=== PATIENT | female | born 1950 | race Caucasian/White ===

== ENCOUNTER 2020-07-13 09:42 | Inpatient (IN) | payer OTHER ==
[2020-07-10 16:28] LABS: BASOPHILS 0.2 % (0-2); EOSINOPHILS 1.8 % (0-7); HEMATOCRIT 41.8 % (36.0-48.0); HEMOGLOBIN 13.7 g/dL (12-16); IMMATURE GRANULOCYTES 0.5 % (0-5); LYMPHOCYTE ABS# 3.15 10x3/uL (1.18-3.74); LYMPHOCYTES 24.6 % (15-50); MCH 28.5 pg (26.0-34.0); MCHC 32.8 g/dL (31.0-37.0); MCV 86.9 fL (80.0-100.0); MEAN PLATELET VOLUME 9.2 fL (7.4-10.4); MONOCYTES 5.5 % (2-11); NEUTROPHIL ABS# 8.66 10x3/uL (1.56-6.13); NEUTROPHILS 67.4 % (40-80); RBC 4.81 10x6/uL (4.00-5.40); RDW 15.6 % (11.5-14.5); WBC 12.8 10x3/uL (4.8-10.8)
[2020-07-10 16:36] LABS: PLATELET COUNT 309 10x3/uL (130-400)
[2020-07-10 16:42] LABS: ANION GAP 9.3 mmol/L (8-16); CALCIUM 9.4 mg/dL (8.5-10.1); CARBON DIOXIDE 29.6 mmol/L (21.0-32.0); POTASSIUM - SERUM 3.9 mmol/L (3.5-5.1)
[2020-07-10 16:56] LABS: APTT 27.6 SECONDS (22.8-39.4); INR 1.04 (0.85-1.17); PROTIME 12.6 SECONDS (11.6-15.0)
[~2020-07-13] VITALS: Ht 165.1 cm; Wt 104.1 kg
--- NOTE | ~2020-07-13 | HEMODYNAMI ---
PATIENT:DARYL ANAYA MEDICAL RECORD: [id number] : 52 LOCATION:D.MS Jin2226 ADMISSION DATE: 07/13/20 Generatedon:19:50 Patient name: DARYL ANAYA Patient #: [id number] SSN: : 1950 Date of study: 07/20/2020 Page: Of Hemodynamic Procedure Report Patient Data Patient Demographics Procedure consent was obtained First Name: DARYL Gender: Female Last Name: HÉCTOR : 1950 Middle Initial: D Age: 69 year(s) Patient #: [id number] Race: Unknown Additional ID: [id number] Contact details [address]: [address] [place] [address] [employer] State: [place] City: [place] Zip code: [address] Past Medical History Allergies Allergen Reaction Date Comments Reported Codeine 07/20/2020 Admission Admission Data Admission Date: 07/13/2020 Admission Time: 18:27 Room #: D.2226 Procedure Procedure Types Cath Procedure Peripheral Cath Diagnostic Procedure PICC PICC Line Placement Procedure Description Procedure Date Procedure Date: 07/20/2020 Procedure Start Time: 9:45 Procedure Staff Name Function Tl Emerson MD Performing Physician Jennifer Low RT Computer Field Technician Mile Kovacs RN Nurse Chandana Hernández RT Scrub Procedure Data Cath Procedure Fluoroscopy Diagnostic fluoroscopy Total fluoroscopy Time: 0 time: 0 min min Diagnostic fluoroscopy Total fluoroscopy dose: 3 dose: 3 mGy mGy Hemodynamics Rest Pre Cath Intra NCS Post Cath Procedure Log Time Note 9:03:58 Use device set PICC 9:04:00 SHIELD Sorbaview ([id number]) opened to sterile field. 9:04:01 Sterile Angiographic Pack opened to sterile field. 9:04:02 Bag Decanter () opened to sterile field. 9:04:11 PowerPICC 5Fr double lumen catheter opened to sterile field. 9:04:20 9:21:03 Time tracking: Regular hours (M-F 7:00 - 5:00) 9:21:38 Plan of Care:Hemodynamics will remain stable., Cardiac rhythm will remain stable., Comfort level will be maintained., Respiratory function will remain adequate., Patient/ family verbilizes understanding of procedure., Procedure tolerated without complication., Recovers from procedure without complications.. 9:21:48 Patient received from Med/Surg to IR Alert and oriented. Tansferred to table in Supine position. 9:21:52 Signed procedure consent form obtained from patient. 9:22:10 H&P Date Dictated: 07/20/2020 Within 30 days and on chart.. 9:44:34 Patient allergic to Codeine 9:44:46 Physician arrived 9:44:46 --------ALL STOP TIME OUT------ 9:44:47 Final Timeout: patient, procedure, and site verified with staff and physician. All members of the team are in agreement. 9:45:08 Right Arm site verified by team. 9:45:17 PICC 9:45:22 Procedure started. 9:45:24 Full Disclosure recording started 9:45:37 Local anesthetic to right arm with Lidocaine 1% by Tl Emerson MD.INITIAL ACCESS ONLY 9:45:40 Venous access obtained using ultrasound guidance. 9:49:02 PICC line was trimmed to 39cm and advanced to the superior vena cava.Position verified under fluoroscopy. 9:49:48 Procedure ended.(Physican Out) 9:49:51 Fluoroscopy time 00.00 minutes. 9:49:54 Fluoroscopy dose: 3 mGy 9:49:54 Flurop Dose total: 3 9:49:57 Procedure and supply charges have been captured, reviewed, submitted and are correct. 9:50:36 Report given to Med/Surg. Device Usage Item Name Manufacture Quantity Catalog Hospital Part Current Minimal Lot# / Number Charge Number Stock Stock Serial# Code DAGOBERTO Centurion 1 [id number] 5 Sorbaview ([id number]) Sterile Cardinal 1 [id number] 5 Angiographic Health Pack Bag Decanter Microtek 1 [id number] [id number] 5 () Medical Inc. PowerPICC Bard 1 [id number] [id number] [id number] 5 5Fr double lumen catheter Signature Audit [place] Stage Time Signature Unsigned Intra-Procedure 07/20/2020 Jennifer Low 9:50:49 AM RT(R) [facility] [address] [place] [address]
[~2020-07-13 09:42] MED LIST: GABAPENTIN100 MG PO; GLIMEPIRIDE2 MG PO; GLUCOPHAGE500 MG PO; GLUCOTROL 5 MG T5 MG PO; HYDROCHLOROTH12.5 M1 PO; HYDROCODON-ACE1 EA10 PO; LEXAPRO10 MG PO; OMEPRAZOLE40 MG PO; PLAVIX75 MG PO; PROAIR HFA8.5 G1 INH
[2020-07-13 10:33] VITALS: BMI 33.3
--- NOTE | 2020-07-13 18:00 | NUR ---
THIS NURSE HAS CALLED THREE TIMES TO PHARMACY TO ASK THAT ZOSYN WHICH IS OVERDUE TO BE BROUGHT THERE IS NONE AVAILABLE ON THIS DEPARTMENT, SPOKE WITH SKIDDER DRIVER, AND NONE HAS BEEN BROUGHT SO ZOSYN IS OVERDUE.
--- NOTE | 2020-07-13 18:15 | NUR ---
REPORT GIVEN TO BUCK BRICEÑO RN AND PATIENT TRANSPORTED BY STRETCHER TO ROOM 2226, PATIENT TRANSFERS FROM STRETCHER TO BED AND EXCHANGE OF CARE GIVEN TO RECEIVING MED/SURG NURSE BUCK BRICEÑO.
[2020-07-13 20:00] VITALS: BP 104/59
[2020-07-13 23:03] VITALS: BP 104/59; BMI 33.1
--- NOTE | 2020-07-13 23:28 | NUR ---
ADMISSION ASSESSMENT AND HISTORY COMPLETE.
[2020-07-13 23:52] VITALS: BP 88/44
--- NOTE | 2020-07-14 | NUR ---
LYING IN BED W/EYES CLOSED RESP EVEN AND UNLABORED W/02@2L/NC IN PROGRESS. NO DISTRESS NOTD.
[2020-07-14 03:53] VITALS: BP 97/60
[2020-07-14 05:58] LABS: HEMOGLOBIN 11.6 g/dL (12-16); MCH 28.3 pg (26.0-34.0); MCHC 31.4 g/dL (31.0-37.0); MCV 90.2 fL (80.0-100.0); MEAN PLATELET VOLUME 9.4 fL (7.4-10.4); PLATELET COUNT 250 10x3/uL (130-400); RDW 16.1 % (11.5-14.5); WBC 9.9 10x3/uL (4.8-10.8)
[2020-07-14 08:54] VITALS: BP 99/52
[2020-07-14 12:29] LABS: ERYTHROCYTE SEDIMENTATION RATE 31 mm/hr (0-30)
[2020-07-14 12:55] VITALS: BP 132/70
[2020-07-14 14:26] VITALS: Ht 165.1 cm; Wt 104.1 kg
[2020-07-14 17:40] VITALS: BP 139/73
--- NOTE | 2020-07-14 19:10 | NUR ---
LYING IN BED AWAKE, ALERT, ORIENTED. RESP EVEN AND UNLABORED ON RA. NO DISTRESS NOTED. DENIES ANY NEEDS AT THIS TIME.
[2020-07-14 20:49] VITALS: BP 135/71
--- NOTE | 2020-07-14 20:50 | NUR ---
MEDS ADMINISTERED/ORDER, PT TOLERATED ALL WELL. REQUEST PAIN MED--MORPHINE ADMINISTERED/ORDER SEE AUG. ASSISTED PT TO BEDPAN THEN CHANGED PT'S BED, PADS, AND GOWN. NO FURTHER NEEDS VOICED. NO DISTRESS NOTED.
[2020-07-15] VITALS (7 sets, daily range): BP systolic 99–130; BP diastolic 53–88
[2020-07-15 07:23] LABS: BASOPHILS 0.2 % (0-2); EOSINOPHILS 2.3 % (0-7); HEMATOCRIT 35.5 % (36.0-48.0); HEMOGLOBIN 11.2 g/dL (12-16); IMMATURE GRANULOCYTES 0.3 % (0-5); LYMPHOCYTE ABS# 2.24 10x3/uL (1.18-3.74); LYMPHOCYTES 23.6 % (15-50); MCH 27.9 pg (26.0-34.0); MCHC 31.5 g/dL (31.0-37.0); MCV 88.3 fL (80.0-100.0); MEAN PLATELET VOLUME 9.2 fL (7.4-10.4); MONOCYTES 5.7 % (2-11); NEUTROPHIL ABS# 6.46 10x3/uL (1.56-6.13); NEUTROPHILS 67.9 % (40-80); PLATELET COUNT 229 10x3/uL (130-400); RBC 4.02 10x6/uL (4.00-5.40); RDW 15.7 % (11.5-14.5); WBC 9.5 10x3/uL (4.8-10.8)
--- NOTE | 2020-07-15 07:37 | NUR ---
REPORT RECIEVED. PT SITTING SEMI FOWLERS IN BED. RR EVEN AND UNLABORED ON RA. SHE HAS A R AC PIV INFUSING 1/2NS @ 50. BED LOCKED AND IN LOWEST POSITION, CALL LIGHT WITHIN REACH. WILL CTM
[2020-07-15 07:47] LABS: CALC OSMOLALITY 284 mosm/kg (275-300); CALCIUM 8.7 mg/dL (8.5-10.1); CARBON DIOXIDE 32.1 mmol/L (21.0-32.0); CHLORIDE - SERUM 103 mmol/L (98-107); CREATININE - SERUM 0.8 mg/dL (0.6-1.3); GLUCOSE 194 mg/dL (74-106); POTASSIUM - SERUM 4.6 mmol/L (3.5-5.1); SODIUM 139 mmol/L (136-145); UREA NITROGEN 17 mg/dL (7-18); eGFR NON AFRICAN AMERICAN 75 mL/min (90-120)
[2020-07-15 07:48] LABS: VANCOMYCIN - TROUGH 20.1 ug/mL (10.0-20.0)
--- NOTE | 2020-07-15 15:27 | NUR ---
OT NOTE: PT REPORTED FEELING BETTER TODAY. SPOKE WITH [facility] TODAY WHO STATED THAT THEY WERE ABLE TO GET PT TO STANDING AND TAKE SIDE STEPS AT EOB WITH MOD ASSIST AND WALKER.. PT AGREEABLE TO GET UP TO EOB AND REQUIRED ONLY MIN ASSIST. D/W PT ABOUT USE OF BS COMMODE AND PT STATED THAT SHE WOULD LIKE TO TRY. ASKED MONK FOR ASSIST FOR SAFETY REASONS. FOUND BS COMMODE. PT FEARFUL THAT COMMODE WOULD MOVE, BUT ASSURED PT THAT MONK WAS HOLDING IT AND IT WOULD NOT MOVE. PT ABLE TO PERFORM TRANSFER FROM BED TO COMMODE WITH MOD ASSIST. REQUIRED ASSIST FOR TOILET HYGIENE; BACK TO BED WITH HIGH MOD ASSIST DUE TO TRANSFERRING TOWARDS NWB SIDE. EDUCATED ON UE AROM EXS..PT CONT TO REPORT PAIN IN L SHOULDER BUT BETTER THAN YESTERDAY. BACK TO BED WITH MIN ASSIST. DIAMOND TOVAR, OTR/L [phone]
--- NOTE | 2020-07-15 15:38 | NUR ---
RESTING IN BED. FREE FROM SIGNS OF DISTRESS. CALL LIGHT IN REACH. BED LOW POSITION, WILL CONTINUE TO MONITOR THROUGHOUT SHIFT.
--- NOTE | 2020-07-15 16:07 | NUR ---
OT NOTE: PT COMPLETED SUPINE TO SIT WITH MOD I. PT COMPLETED BED TO BSC TSF WITH MOD A. PT REQUIRED TOTAL A WITH TOILET HYGIENE. [phone] THANK YOU,ALESHIA KIRKLAND
--- NOTE | 2020-07-15 19:02 | NUR ---
LYING IN BED AWAKE, ALERT, ORIENTED. MOF IN ROOM VISITING. RESP EVEN AND UNLABNORED ON RA. DENIES ANY NEEDS AT THIS TIME.
--- NOTE | 2020-07-15 21:29 | NUR ---
MEDS ADMINISTERED/ORDER, PT TOLERATED ALL WELL. ASSISTED PT ONTO BEDPAN/REQUEST. NO FURTHER NEEDS VOICED AT THIS TIME. ALL CONSENTS FOR PT'S PROCEDURE REVIEWED VERBALLY W/UNDERSTANDING STATED TO ALL--SIGNED AND COMPLETED, PLACED IN PT'S CHART.
[2020-07-16] VITALS (7 sets, daily range): BP systolic 113–163; BP diastolic 58–93
--- NOTE | 2020-07-16 05:50 | NUR ---
LYING IN BED AWAKE, ALERT, ORIENTED. RESP EVEN AND UNLABORED ON RA. PT HAD CHG BATH THIS AM FOR PROCEDURE THIS AM. PT RESTED WELL LAST NIGHT W/O C/O. NO DISTRESS NOTED.
[2020-07-16 06:07] LABS: BASOPHILS 0.2 % (0-2); EOSINOPHILS 2.8 % (0-7); HEMATOCRIT 35.9 % (36.0-48.0); HEMOGLOBIN 11.4 g/dL (12-16); IMMATURE GRANULOCYTES 0.6 % (0-5); LYMPHOCYTES 30.9 % (15-50); MCHC 31.8 g/dL (31.0-37.0); MCV 88.2 fL (80.0-100.0); MEAN PLATELET VOLUME 9.4 fL (7.4-10.4); MONOCYTES 6.6 % (2-11); NEUTROPHIL ABS# 5.35 10x3/uL (1.56-6.13); NEUTROPHILS 58.9 % (40-80); PLATELET COUNT 235 10x3/uL (130-400); RBC 4.07 10x6/uL (4.00-5.40); RDW 15.6 % (11.5-14.5); WBC 9.1 10x3/uL (4.8-10.8)
[2020-07-16 06:23] LABS: ANION GAP 8.3 mmol/L (8-16); C-REACTIVE PROTEIN 2.8 mg/dL (0.0-0.9); CALCIUM 8.8 mg/dL (8.5-10.1); CARBON DIOXIDE 31.6 mmol/L (21.0-32.0); CREATININE - SERUM 0.9 mg/dL (0.6-1.3); POTASSIUM - SERUM 3.9 mmol/L (3.5-5.1)
--- NOTE | 2020-07-16 07:00 | NUR ---
RECEIVED BEDSIDE REPORT AND ASSUMED CARE OF PATIENT. PATIENT ALERT AND ORIENTED X 4, WOUND VAC TO LEFT LOWER LEG, CAP REFILL <2 SECONDS. BBS - CLEAR AND EQUAL ON RA. IV 20 GA TO RIGHT AC INFUSING 1/2NS AT 50 ML/HR. RATES PAIN TO LOWER LEG 8/10. HEAD TO TOE ASSESSMENT COMPLETED.
--- NOTE | 2020-07-16 13:18 | OP ---
PATIENT NAME: DARYL ANAYA MEDICAL RECORD: [id number] :52 LOCATION:D.MS [id number] ADMISSION DATE:07/13/20 SURGEON: TAMEKA ALEMAN MD DATE OF OPERATION: 07/13/2020 PREOPERATIVE DIAGNOSES: 1. Open wound, left ankle. 2. Left ankle infection. 3. History of left ankle fracture. POSTOPERATIVE DIAGNOSES: 1. Open wound, left ankle. 2. Left ankle infection. 3. History of left ankle fracture. PROCEDURE PERFORMED: 1. Incision and debridement of left ankle (skin, subcutaneous tissue, tendon, bone). 2. Placement of wound VAC, left ankle (less than 50 cm-squared). INDICATIONS FOR THE PROCEDURE: Ms. Anaya is a 69-year-old female who sustained a left ankle fracture in March of last year. She was treated at an outside hospital and went on to develop a wound over the anterior ankle that they have been treating with wound care. There are exposed tendons and a large eschar over the anterior aspect of the ankle as well as a couple of small draining wounds posteriorly. I have talked with her about options for limb salvage versus amputation. She would like to save her leg if possible. I explained this will be a very difficult and staged process involving multiple debridements and then wound VAC placement to facilitate healing of the tissues before hopefully eventually skin grafting these areas. We will also evaluate the fixation of the ankle. If at any point, this is not successful, she may eventually require amputation and she is aware of this. Risks, benefits and alternatives of surgery were discussed with the patient and consent was obtained. DESCRIPTION OF PROCEDURE: The patient was met in the holding area where her identity and confirmation of the procedure was performed. Left lower extremity was marked. She was taken to the operating room where she was placed supine on the operating table and anesthesia was administered. Tourniquet was applied to left thigh and left leg was prepped and draped in a sterile fashion. The patient received preoperative antibiotics and timeout was performed before initiating the case. On initiation of the case, tissue over the anterior ankle was debrided. There are exposed tendons in the lateral portion of the wound bed with the large eschar medially. This was fully transected with a fibrinous base of tissue along the skin edges beneath. This was circumferentially excised until we were back to full wound edges. The anterior tibia was present in the medial aspect of the wound bed and there was a portion of the medial malleolus fracture that was easily visible and mobile. The ankle joint was also able to be entered through the anterior medial portion of the wound. Extensive debridement of this area was performed. The tibia ant tendon was intact, but was significantly frayed. We attempted to salvage as much as we could. It appeared that the EHL tendon was absent. The extensor digitorum tendon did appear to be present. The dorsalis pedis artery was dopplerable in the wound bed. I was not able to Doppler the posterior tibial artery. After a thorough debridement of the anterior wound, the wound measured 7 x 4 cm. We then moved OPERATIVE REPORT [id number] CLINTONMichaelYOLIMARCELA Charles posterior medial. There were 2 small wounds near each other with fibrinous tissue in the wound bed and serous drainage. These were connected and elliptically excised. Medial wound measures 4 x 2 cm. These wounds were irrigated thoroughly with saline. Cultures were obtained of the anterior ankle wound including a DNA culture and culture swabs were also obtained of the posterior medial ankle wound. The wound VAC was then applied to these individual wounds and connected with an adapter. It was noted to have good compression. The patient was then placed into a posterior splint, turned back over to anesthesia where she was awakened, extubated, and taken to recovery room in stable condition. POSTOPERATIVE PLAN: The patient is going to be admitted for continued postoperative care. We will start her on prophylactic IV antibiotics and tailor these accordingly. I am going to obtain a CT scan of the ankle to better evaluate the tissues and the bone. Plan, return to the operating room on for repeat I&D. ANESTHESIA: General. COMPLICATIONS: None. ESTIMATED BLOOD LOSS: 5 mL. TRANSINT:[id number] Voice Confirmation ID: [id number] DOCUMENT ID: [id number] TAMEKA ALEMAN MD at 1318 CC: [id number] DICTATION DATE: 07/13/20 1613 GLASS TECHNICIAN: 07/13/202230 ADM IN [place] [id number]
--- NOTE | 2020-07-16 13:44 | NUR ---
IV 20 GA STARTED TO RIGHT FA X 1 ATTEMPT, POSITIVE BLOOD RETURN AND FLUSHES EASILY, INFUSING 1/2NS AT 50 ML/HR. IV 20 GA TO LEFT AC DISCONTINUED, DIRECT PRESSURE HELD AND DRESSED WITH 2X2 AND TAPE.
--- NOTE | 2020-07-16 14:43 | NUR ---
PREOP MEDS PER ORDERS AND TO OR WITH OR TECH VIA BED.
--- NOTE | 2020-07-16 15:15 | NUR ---
OT NOTE: PT PERFORMED NUMEROUS ADLS IN AM.. BED MOB WITH MIN ASSIST FOR SUPINE TO SIT; PRACTICED SIT TO STAND WITH WALKER AND MIN/MOD ASSIST AND ASSIST FOR EQUIP MGMT( WOUND VAC AND IV)...ALSO REQUIRED CUES TO ASSIST PT WITH NON WT BEARING THROUGH L LE AND INCREASE USE OF B UES WITH WALKER. TRANSFER TO BS COMMODE WITH MOD ASSIST. SET UP FOR TOILET HYGIENE; SPONGE BATH WITH MIN ASSIST. PT REPORTS THAT SHE WILL BE HAVING PROCEDURE THIS AFTERNOON. DIAMOND TOVAR, OTR/L [phone]
--- NOTE | 2020-07-16 16:45 | NUR ---
OT NOTE: PT COMPLETED BED TO BS TSF WITH MIN A. PT COMPETED LB HYGIENE WITH MOD A. PT COMPLETED STANDING WITH MIN A. [phone] THANK YOU,ALESHIA KIRKLAND
--- NOTE | 2020-07-16 17:20 | NUR ---
RECEIVED PATIENT FROM PACU, VSS. ALERT AND ORIENTED X 4, RATES PAIN TO LEFT LEG 9/10. WOUND VAC IN PLACE, DRESSING C/D/I.
--- NOTE | 2020-07-16 20:30 | NUR ---
REPORT RECEIVED, WILL CONT POC. PT A&O LAYING IN BED WATCHING TV. NO S/S OF DISTRESS NOTED. RR EVEN AND UNLABORED ON 2L NC. PT DENIES NEEDS AT THIS TIME. BED LOCKED AND LOWERED, CL IN REACH. ASSESSMENT COMPLETED AT THIS TIME. WILL CONT TO MONITOR.
[2020-07-17] VITALS: BP 118/46
[2020-07-17 04:00] VITALS: BP 112/54
[2020-07-17 05:59] LABS: BASOPHILS 0.3 % (0-2); EOSINOPHILS 2.3 % (0-7); HEMATOCRIT 34.8 % (36.0-48.0); IMMATURE GRANULOCYTES 0.6 % (0-5); LYMPHOCYTE ABS# 1.98 10x3/uL (1.18-3.74); LYMPHOCYTES 20.4 % (15-50); MCH 28.1 pg (26.0-34.0); MCHC 31.6 g/dL (31.0-37.0); MEAN PLATELET VOLUME 9.8 fL (7.4-10.4); MONOCYTES 9.9 % (2-11); NEUTROPHIL ABS# 6.44 10x3/uL (1.56-6.13); NEUTROPHILS 66.5 % (40-80); PLATELET COUNT 238 10x3/uL (130-400); RBC 3.91 10x6/uL (4.00-5.40); RDW 15.9 % (11.5-14.5); WBC 9.7 10x3/uL (4.8-10.8)
[2020-07-17 06:04] LABS: ANION GAP 7.8 mmol/L (8-16); CALCIUM 8.7 mg/dL (8.5-10.1); CREATININE - SERUM 0.9 mg/dL (0.6-1.3); POTASSIUM - SERUM 3.8 mmol/L (3.5-5.1)
[2020-07-17 08:16] VITALS: BP 114/61
--- NOTE | 2020-07-17 09:00 | NUR ---
ALERT AND ORIENTED. ADMISSION COMPLETE. DENIES NEEDS. BED LOW. CALL SANCHES AND PERSONAL ITEMS IN REACH. WILL CONTINUE TO MONITOR.
[2020-07-17 12:11] VITALS: BP 138/63
--- NOTE | 2020-07-17 12:13 | NUR ---
OT NOTE: PT COMPLETED BED MOB WITH MIN A. PT COMPLETED EOB SITTING BALANCE WITH SBA. PT COMPLETED UB HYGIENE WITH SETUP. [id number] LARA DIMAS COTA
--- NOTE | 2020-07-17 12:21 | NUR ---
OT NOTE: ATTEMPTED TO SEE PT EARLY IN THE AM, HOWEVER, SHE REQUESTED TO GET A PAIN PILL FIRST. WITH SECOND ATTEMPT, PT WAS READY TO GET UP.. PT ABLE TO PERFORM SUPINE TO SIT WITH MIN ASSIST; WITH ASSIST X 2, PT ABLE TO STAND WITH WALKER WITH MOD ASSIST X 2 (ALONG WITH EQUIP MGMT AND CONTINUAL CUES FOR WT BEARING) PT REPORTED THAT SHE COULD DO BETTER IF SHE DID NOT HAVE PAIN DOWN R LEG ALSO.. PT REQUIRED MOD ASSIST WITH WALKER MGMT TO STEP AT EOB. TOILETING WITH SET UP FOR HYGIENE. PRACTICED HAVING PT SCOOT UP IN BED AND SHE PERFORMED WELL TODAY. EDUCATED ON UE EXS IN BED. DIAMOND TOVAR, OTR/L [phone]
[2020-07-17 16:09] VITALS: BP 168/77
--- NOTE | 2020-07-17 18:04 | NUR ---
CONSENTS OBTAINED FOR PROCEDURE.
[2020-07-17 20:00] VITALS: BP 168/62
--- NOTE | 2020-07-17 23:13 | NUR ---
REPORT RECEIVED, WILL CONT TO MONITOR. PT UP IN BED WATCHING TV, A&O. NO S/S OF DISTRESS OBSERVED. RR EVEN & UNLABORED ON 2L NC. PT DENIES NEEDS AT THIS TIME. BED LOCKED AND LOWERED, CL IN REACH. ASSESSMENT COMPLETED AT THIS TIME. WILL CONT TO MONITOR.
[2020-07-18 00:39] VITALS: BP 172/68
[2020-07-18 04:00] VITALS: BP 117/51
[2020-07-18 05:54] LABS: ANION GAP 6.5 mmol/L (8-16); CALCIUM 8.6 mg/dL (8.5-10.1); CARBON DIOXIDE 29.4 mmol/L (21.0-32.0); CREATININE - SERUM 1.1 mg/dL (0.6-1.3); POTASSIUM - SERUM 3.9 mmol/L (3.5-5.1)
[2020-07-18 05:59] LABS: VANCOMYCIN - TROUGH 21.4 ug/mL (10.0-20.0)
[2020-07-18 06:06] LABS: BASOPHILS 0.5 % (0-2); EOSINOPHILS 2.9 % (0-7); HEMATOCRIT 37.5 % (36.0-48.0); IMMATURE GRANULOCYTES 0.5 % (0-5); LYMPHOCYTE ABS# 2.58 10x3/uL (1.18-3.74); LYMPHOCYTES 25.4 % (15-50); MCH 29.3 pg (26.0-34.0); MEAN PLATELET VOLUME 10.2 fL (7.4-10.4); MONOCYTES 12.8 % (2-11); NEUTROPHIL ABS# 5.89 10x3/uL (1.56-6.13); NEUTROPHILS 57.9 % (40-80); RBC 4.09 10x6/uL (4.00-5.40); RDW 16.3 % (11.5-14.5); WBC 10.2 10x3/uL (4.8-10.8)
[2020-07-18 06:07] LABS: MCV 91.7 fL (80.0-100.0); PLATELET COUNT 288 10x3/uL (130-400)
[2020-07-18 08:30] VITALS: BP 111/47
--- NOTE | 2020-07-18 08:44 | NUR ---
AWAKE AND ALERT. ORIENTED X3. REQUESTED AND GIVEN HYDROCODONE PO FOR C/O LEFT ANKLE PAIN LEVEL 8. WILL MONITOR. LUNGS ARE CLEAR BUT DIMINISHED IN RIGHT LL. PRODUCTIVE COUGH NOTED. WILL MONITOR. SKIN IS INTACT WITHOUT REDNESS EXCEPT INCISION TO LEFT ANKLE WHICH HAS A WOUND VAC IN PLACE WITH NO DRAINAGE NOTED. DENIES NEEDS. BREAKFAST TRAY ORDERED.
--- NOTE | 2020-07-18 10:00 | NUR ---
ATE MOST OF LATE BREAKFAST TRAY. TOOK AM MEDS WITHOUT DIFFICULTY. DENIES NEEDS.
--- NOTE | 2020-07-18 12:00 | NUR ---
FSBS 190. GIVEN 2 UNITS REGULAR SUB Q PER SS. LUNCH SERVED IN ROOM.
[2020-07-18 12:47] VITALS: BP 124/66
--- NOTE | 2020-07-18 15:45 | NUR ---
UP TO BSC WITH ONE PERSON MIN ASSIST NWB ON LLE. HAD LARGE VOLUMN OF LOOSE DARK BROWN WATERY STOOL. SKIN CARE PER STAFF. REPOSITIONED IN BED FOR COMFORT.
--- NOTE | 2020-07-18 16:10 | NUR ---
REQUESTED AND GIVEN 2 HYDROCODONE PO FOR C/O LEFT FOOT PAIN LEVEL 8. WILL MONITOR.
[2020-07-18 17:11] VITALS: BP 121/76
--- NOTE | 2020-07-18 18:00 | NUR ---
ATE MOST OF SUPPER. REPORTS PAIN IMPROVED. DENIES NEEDS. NO CHANGES NOTED.
--- NOTE | 2020-07-18 19:10 | NUR ---
ALERT AND ORIENTED. DAUGHTER AT BEDSIDE. PATIENT STATES "I NEED TO PEE!" ASSISTED TO BEDSIDE COMMODE. PATIENT ONE PERSON ASSIST, NWB, TO LLE. TOLERATED TRANSFERS WELL TO AND FROM BEDSIDE COMMODE. RETURNED TO BED SAFELY. WOUND VAC IN PLACE TO THE LEFT LOWER EXTREMETY AND SUCTIONING AT 150 MMHQ, PER ORDER. ASSESSMENT CONTINUED TO BE PERFORMED AND COMPLETED, SEE CHART. DENIES NEEDS AT THIS TIME. CPOC.
[2020-07-18 20:10] VITALS: BP 173/87
--- NOTE | 2020-07-18 20:24 | NUR ---
PATIENT REQUESTING PRN PAIN MEDICATION WITH HS MEDICATIONS, ADMINISTERED PER ORDER. DENIES FURTHER NEEDS AT THIS TIME. SPOKE WITH PATIENT FOR SEVERAL MINUTES ABOUT SURGICAL PROCEDURE IN AM. INCLUDING HIBBICLINS AND BED CHANGE WILL BE PROVIDED. PATIENT VERBALIZES UNDERSTANDING. DENIES FURTHER NEEDS. CPOC.
[2020-07-19] VITALS (11 sets, daily range): BP systolic 115–191; BP diastolic 33–83
[2020-07-19 05:12] LABS: BASOPHILS 0.4 % (0-2); HEMOGLOBIN 11.7 g/dL (12-16); IMMATURE GRANULOCYTES 0.4 % (0-5); LYMPHOCYTE ABS# 2.62 10x3/uL (1.18-3.74); MCH 28.3 pg (26.0-34.0); MCHC 31.6 g/dL (31.0-37.0); NEUTROPHIL ABS# 6.06 10x3/uL (1.56-6.13); NEUTROPHILS 60.2 % (40-80); RBC 4.13 10x6/uL (4.00-5.40); RDW 16.1 % (11.5-14.5); WBC 10.1 10x3/uL (4.8-10.8)
[2020-07-19 05:26] LABS: MCV 89.6 fL (80.0-100.0); PLATELET COUNT 193 10x3/uL (130-400)
[2020-07-19 05:29] LABS: ANION GAP 10.4 mmol/L (8-16); CALCIUM 8.7 mg/dL (8.5-10.1); POTASSIUM - SERUM 3.8 mmol/L (3.5-5.1)
[2020-07-19 05:30] LABS: CARBON DIOXIDE 28.4 mmol/L (21.0-32.0)
--- NOTE | 2020-07-19 07:45 | NUR ---
PRE OP MEDS GIVEN. BP IS ELEVATED THIS AM. WILL MONITOR. AWAKE AND ALERT. ORIENTED X3. LUNGS ARE CLEAR BILATERALLY, NO COUGH NOTED. SKIN IS INTACT WITHOUT REDNESS EXCEPT TO LEFT ANKLE WHICH HAS A WOUND VAC IN PLACE WITH NOT OUTPUT. IV TO LEFT FOREARM IS PATENT WITHOUT REDNESS AT INSERTION SITE. DENIES NEEDS. ASSISTED WITH BED CADE PER STAFF. VOIDED 300CC CLEAR YELLOW URINE WITHOUT DIFFICUTLY. SKIN CARE PER STAFF.
--- NOTE | 2020-07-19 09:40 | NUR ---
OFF UNIT VIA BED FOR SURGERY.
--- NOTE | 2020-07-19 13:06 | NUR ---
RETURNED FROM SURGERY. A/O X3. DRESSING TO LEFT ANKLE DRY AND INTACT. C/O PAIN TO LEFT ANKLE. ICE APPLIED TO SAME.
--- NOTE | 2020-07-19 13:30 | NUR ---
CONTINUES WITH C/O PAIN TO LEFT ANKLE. WILL CONTINUE TO MONITOR.
--- NOTE | 2020-07-19 14:00 | NUR ---
RESTING QUIETLY WITH EYES CLOSED. WHEN SHE HEARS A NOISE SHE ASKS FOR PAIN MEDICINE. WILL CONTINUE TO MONITOR.
--- NOTE | 2020-07-19 16:50 | NUR ---
FSBS 215. GIVEN 4 UNITS REGULAR SUBQ PER SS. CONTINUES TO C/O PAIN. GIVEN 2 HYDROCODONE PO FOR LEVEL 10. WILL MONITOR.
--- NOTE | 2020-07-19 18:37 | NUR ---
CALLED [employer] AND GOT ALTERNATIVE TRAY FOR SUPPER. REPORTS PAIN IMPROVED AFTER HYDROCODONE GIVEN. WILL CONTINUE TO MONITOR. DENIES NEEDS. NO CHANGES NOTED.
--- NOTE | 2020-07-19 19:25 | NUR ---
PATIENT IN SUPINE POSITION WHEN ENTERING ROOM. PATIENT ALERT, ORIENTED, AND REQUESTING PAIN MEDICATION AT THIS TIME. EXPLAINED TO PATIENT MEDICATION UNAVAILABLE. ASSISTED PATIENT WITH NEW ICE PACK AND ELEVATING LLE. WOUND VAC REMAINS ADHERED TO LLE, SUCTIONING AT 150 MMHQ PER ORDER. PATIENT STATES NONPHAM INTERVENTIONS "HELP A LOT." DENIES FURTHER NEEDS AT THIS TIME. CALL LIGHT CLOSE. CPOC.
--- NOTE | 2020-07-19 21:00 | NUR ---
PATIENT INCONTINET OF BOWEL. FULL BED CHANGE AND BATH PERFORMED ON PATIENT. TOELRATED WELL. ADMINISTERED HS MEDICATIONS. CPOC.
--- NOTE | 2020-07-19 22:45 | NUR ---
ANSWERED PATIENT CALL LIGHT. PATIENT STATES "CAN I HAVE SOMETHING TO EAT, I AM STARVING." PROVIDED SANDWICH TRAY.
--- NOTE | 2020-07-20 01:09 | NUR ---
PATIENT REQUESTING PRN PAIN MEDICATION. ADMINISTERED PER ORDER. PROVIDED NEW ICE PACKS WELL. DENIES FURTHER NEEDS. CPOC.
[2020-07-20 04:00] VITALS: BP 126/54
[2020-07-20 06:59] LABS: ANION GAP 8.2 mmol/L (8-16); POTASSIUM - SERUM 4.2 mmol/L (3.5-5.1)
[2020-07-20 07:00] LABS: CREATININE - SERUM 1.3 mg/dL (0.6-1.3)
[2020-07-20 08:36] LABS: BASOPHILS 0.3 % (0-2); EOSINOPHILS 3.2 % (0-7); HEMATOCRIT 32.4 % (36.0-48.0); IMMATURE GRANULOCYTES 0.3 % (0-5); LYMPHOCYTE ABS# 2.56 10x3/uL (1.18-3.74); LYMPHOCYTES 26.5 % (15-50); MCH 28.3 pg (26.0-34.0); MCHC 30.9 g/dL (31.0-37.0); MEAN PLATELET VOLUME 9.6 fL (7.4-10.4); MONOCYTES 8.5 % (2-11); NEUTROPHIL ABS# 5.91 10x3/uL (1.56-6.13); NEUTROPHILS 61.2 % (40-80); RBC 3.53 10x6/uL (4.00-5.40); RDW 16.5 % (11.5-14.5); WBC 9.7 10x3/uL (4.8-10.8)
[2020-07-20 08:53] LABS: MCV 91.8 fL (80.0-100.0); PLATELET COUNT 234 10x3/uL (130-400)
[2020-07-20 09:12] VITALS: BP 137/78
[2020-07-20 12:00] VITALS: BP 91/66
--- NOTE | 2020-07-20 13:55 | NUR ---
Nutrition follow-up: Pt receiving a consistent CHO diet with po intake 75-100% of meals Labs reviewed Wt: 199# +BM, loose PO intake good at this time Will continue to provide food choices with selective menus and honor food preferences Will offer nutritional supplements. RDN follow-up: 07/24/20
[2020-07-20 17:08] LABS: AEROBE ID Final report (()); RESULT 1 Dermabacter hominis (())
[2020-07-20 17:13] VITALS: BP 113/62
--- NOTE | 2020-07-20 19:52 | MORECARE ---
CASE MANAGEMENT DISCHARGE SUMMARY PATIENT: DARYL ANAYA UNIT: [id number] ADM DATE: 07/13/20 AGE: 69 : 51 SEX: F ROOM/BED: D.2226 AUTHOR: CORINE GÓMEZ PHYSICIAN: REFERRING PHYSICIAN: TAMEKA ALEMAN MD DATE OF SERVICE: 07/20/20 Discharge Plan Patient Name: DARYL ANAYA Facility: [facility]:[place] : 1950 Planned Disposition: Anticipated Discharge Date: Discharge Date: Expected LOS: Initial Reviewer: [email or web address] Initial Review Date: 07/14/2020 Generated: 07/20/20 8:51 pm Patient Name: DARYL ANAYA Page [phone] at 1950 All edits/amendments must be made on the electronic document DICTATION DATE: 07/20/201950 TENDER LABOR: TAM 07/20/201950 RPT#: [id number] DC DATE: STATUS: ADM IN [facility] [address] [place] [address] END OF REPORT
--- NOTE | 2020-07-20 20:38 | MORECARE ---
CASE MANAGEMENT DISCHARGE SUMMARY PATIENT: DARYL ANAYA UNIT: [id number] ADM DATE: 07/13/20 AGE: 69 : 51 SEX: F ROOM/BED: D.2226 AUTHOR: CORINE GÓMEZ PHYSICIAN: REFERRING PHYSICIAN: TAMEKA ALEMAN MD DATE OF SERVICE: 07/20/20 Discharge Plan Patient Name: DARYL ANAYA Facility: [facility]:[place] : 1950 Planned Disposition: Anticipated Discharge Date: Discharge Date: Expected LOS: Initial Reviewer: [email or web address] Initial Review Date: 07/14/2020 Generated: 07/20/20 9:37 pm Comments DCP- Discharge Planning Updated by [email or web address]: Eden Schwarz on 07/20/20 7:[address] SENT THE ORDER TO [facility] WAITING ON SENSIVITIES FOR HOME IV ABX ORDER TO SET UP External Providers External Provider: [facility] [employer] Next Contact Date: Service Request Date: Service Type: Resolution: Reviewer: Comments: Last DP export: 07/20/20 6:52 p Patient Name: DARYL ANAYA Page [phone] at 2037 All edits/amendments must be made on the electronic document DICTATION DATE: 07/20/202036 COMPANY PILOT: TAM 07/20/202036 RPT#: [id number] DC DATE: STATUS: ADM IN [facility] [address] [place] [address] END OF REPORT
[2020-07-20 21:32] VITALS: BP 136/70
[2020-07-21 00:23] VITALS: BP 127/60
--- NOTE | 2020-07-21 02:11 | NUR ---
REC'D IN BED WATCHING TV.DRSG LEFT ANKLE AND WOUND VAC INTACT.ELEVATED ON PILLOW TOES AND NAILBEDS PINK AND WARM.BLANCHES WELL WIGGLES WITHOUT DIFFICULTY.WILL CONTINUE TO MONITOR FOR ANY CHGES IN NEUROVASCULAR STATUS AND FOLLOW CURRENT PLAN OF CARE.
[2020-07-21 04:23] VITALS: BP 147/52
[2020-07-21 07:32] LABS: ANION GAP 13.2 mmol/L (8-16); CALCIUM 8.5 mg/dL (8.5-10.1); CARBON DIOXIDE 26.4 mmol/L (21.0-32.0); CREATININE - SERUM 1.4 mg/dL (0.6-1.3); POTASSIUM - SERUM 4.6 mmol/L (3.5-5.1)
[2020-07-21 08:11] VITALS: BP 142/54
[2020-07-21 08:11] LABS: BASOPHILS 0.5 % (0-2); HEMATOCRIT 33.2 % (36.0-48.0); HEMOGLOBIN 10.3 g/dL (12-16); IMMATURE GRANULOCYTES 0.2 % (0-5); LYMPHOCYTE ABS# 2.33 10x3/uL (1.18-3.74); MCH 28.4 pg (26.0-34.0); MCV 91.5 fL (80.0-100.0); MEAN PLATELET VOLUME 9.5 fL (7.4-10.4); NEUTROPHILS 63.3 % (40-80); PLATELET COUNT 188 10x3/uL (130-400); RBC 3.63 10x6/uL (4.00-5.40); RDW 16.3 % (11.5-14.5); WBC 9.3 10x3/uL (4.8-10.8)
[2020-07-21 11:50] VITALS: BP 162/72
--- NOTE | 2020-07-21 14:21 | MORECARE ---
CASE MANAGEMENT DISCHARGE SUMMARY PATIENT: DARYL ANAYA UNIT: [id number] ADM DATE: 07/13/20 AGE: 69 : 51 SEX: F ROOM/BED: D.[facility]6 AUTHOR: CORINE GÓMEZ PHYSICIAN: REFERRING PHYSICIAN: TAMEKA ALEMAN MD DATE OF SERVICE: 07/21/20 Discharge Plan Patient Name: DARYL ANAYA Facility: [facility]:[place] : 1950 Planned Disposition: Anticipated Discharge Date: Discharge Date: Expected LOS: Initial Reviewer: [email or web address] Initial Review Date: 07/14/2020 Generated: 07/21/20 3:20 pm Comments DCP- Discharge Planning Updated by [email or web address]: Eden Schwarz on 07/21/20 1:[address] [facility] WOUND VAC APPROVED, WAITING ON MICRO FOR IV HOME ABX DCP- Discharge Planning Updated by [email or web address]: Eden Schwarz on 07/20/20 7:[address] SENT THE ORDER TO [facility] WAITING ON SENSIVITIES FOR HOME IV ABX ORDER TO SET UP External Providers [facility] Next Contact Date: Service Request Date: Service Type: Resolution: Reviewer: Comments: Last DP export: 07/20/20 7:38 p Patient Name: DARYL ANAYA Page [phone] at 1421 All edits/amendments must be made on the electronic document DICTATION DATE: 07/21/20 142 CARDING MACHINE OPERATOR: TAM 07/21/20 142 RPT#: [id number] DC DATE: STATUS: ADM IN [facility] [address] [place] [address] END OF REPORT
--- NOTE | 2020-07-21 14:29 | MORECARE ---
CASE MANAGEMENT DISCHARGE SUMMARY PATIENT: DARYL ANAYA UNIT: [id number] ADM DATE: 07/13/20 AGE: 69 : 51 SEX: F ROOM/BED: D.2226 AUTHOR: CORINE GÓMEZ PHYSICIAN: REFERRING PHYSICIAN: TAMEKA ALEMAN MD DATE OF SERVICE: 07/21/20 Discharge Plan Patient Name: DARYL ANAYA Facility: [facility]:[place] : 1950 Planned Disposition: Anticipated Discharge Date: Discharge Date: Expected LOS: Initial Reviewer: [email or web address] Initial Review Date: 07/14/2020 Generated: 07/21/20 3:28 pm Comments DCP- Discharge Planning Updated by [email or web address]: Eden Schwarz on 07/21/20 1:[address] I HAVE FAXED CLINCIALS TO [facility], PATIENT IS CURRENT WITH THEM AT THIS TIME DCP- Discharge Planning Updated by [email or web address]: Eden Schwarz on 07/21/20 1:[address] [facility] WOUND VAC APPROVED, WAITING ON MICRO FOR IV HOME ABX DCP- Discharge Planning Updated by [id number]: Eden Schwarz on 07/20/20 7:[address] SENT THE ORDER TO [facility] WAITING ON SENSIVITIES FOR HOME IV ABX ORDER TO SET UP Last DP export: 07/21/20 1:21 p Patient Name: DARYL ANAYA Page 64092 at 1429 All edits/amendments must be made on the electronic document DICTATION DATE: 07/21/20 1428 DIRECTOR SPEECH: TAM 07/21/20 1428 RPT#: [id number] DC DATE: STATUS: ADM IN [facility] [address] [id number] END OF REPORT
[2020-07-21 16:00] VITALS: BP 169/62
[2020-07-21 20:00] VITALS: BP 136/55
--- NOTE | 2020-07-22 00:07 | NUR ---
REC'D CHGE OF SHIFT WALKING ROUNDS YELLING ON ENTERING ROOM STATES BEEN TRYING TO GET ON BEDPAN FOR 35MIN. ASSIATED ON BEDPAN VOIDED LGE. AMT.ACEWEEEERAP DRSG DRY AND INTACT TO LEFT FOOT ELEVATED ON TWO PILLOWS WIGGLES TOES WILL CONTINUE TO MONITOR FOR ANY CHGES IN NEUROVASCULAR STATUS AND FOLLOW CURRENT PLAN OF CARE.
[2020-07-22 01:07] VITALS: BP 160/53
[2020-07-22 04:00] VITALS: BP 138/84
[2020-07-22 06:23] LABS: BASOPHILS 0.3 % (0-2); EOSINOPHILS 3.1 % (0-7); HEMOGLOBIN 10.5 g/dL (12-16); IMMATURE GRANULOCYTES 0.2 % (0-5); LYMPHOCYTES 23.1 % (15-50); MCH 28.3 pg (26.0-34.0); MCHC 30.9 g/dL (31.0-37.0); MCV 91.6 fL (80.0-100.0); MEAN PLATELET VOLUME 9.8 fL (7.4-10.4); MONOCYTES 8.2 % (2-11); NEUTROPHIL ABS# 6.21 10x3/uL (1.56-6.13); NEUTROPHILS 65.1 % (40-80); RBC 3.71 10x6/uL (4.00-5.40); RDW 16.1 % (11.5-14.5); WBC 9.5 10x3/uL (4.8-10.8)
[2020-07-22 06:32] LABS: ANION GAP 8.6 mmol/L (8-16); CALCIUM 8.5 mg/dL (8.5-10.1); CARBON DIOXIDE 31.7 mmol/L (21.0-32.0); CREATININE - SERUM 1.3 mg/dL (0.6-1.3); POTASSIUM - SERUM 4.3 mmol/L (3.5-5.1)
[2020-07-22 06:38] LABS: PLATELET COUNT 262 10x3/uL (130-400)
[2020-07-22 07:54] VITALS: BP 154/54
[2020-07-22 11:40] VITALS: BP 126/72
[2020-07-22 15:51] VITALS: BP 201/77
--- NOTE | 2020-07-22 17:44 | NUR ---
PATIENT SITTING UP IN BED EATING DINNER, STATED SHE NEEDED THE BEDPAN, ENCOURAGED PT TO USE BSC, PT STATED SHE IS HURTING TOO MUCH TO GET UP. ENCOURAGED PT THAT SHE WILL NEED TO TRY AND GET UP IF SHE WANTS TO GO HOME AND WORKING HER MUSCLES WILL HELP HER REACH THE GOAL SOONER. HERON
[2020-07-22 20:00] VITALS: BP 189/71
--- NOTE | 2020-07-22 20:00 | NUR ---
PATIENT O2 SATURATION IS AT 87% PATIENT O2 AT 3L BUT SHE IS NOT WEARING IT. PATIENT STATES " I FEEL LIKE I'M CHOKING WHEN I WEAR IT" ENCOURAGED PATIENT TO WEAR IT AND SHOWED PATIENT WHERE SHE CAN ADJUST TIGHTNESS OR LOOSEN IN CASE PATIENT NEEDS TO ADJUST HERSELF. EDUCATED PATIENT ON IMPORTANCE OF WEARING O2. PATIENT VERBALIZED UNDERSTANDING. CONTINUE WITH PLAN OF CARE
--- NOTE | 2020-07-22 20:42 | NUR ---
REC'D IN BED INCONTINENT OF BM ANGRY STATES TAKES YOU NURSES TOO LONG TO GET HERE INSTRUCTED WE NEED TO THROW BED CADE AWAY DR WANTS YOU UP BSC AND MOVING DISCUSSED POST-OP COMPLICATIONS THAT COULD OCCUR BY NOT MOVING AROUND PNEUMONIA,BLOOD CLOTS ETC VOICES UNDERSTANDING BUT HE DOESN'T KNOW HOW PAINFUL IT IS WILL CONTINUE TO MONITOR FOR ANY CHGES IN NEUROVASCULAR STATUS AND FOLLOW CURRENT PLAN OF CARE
[2020-07-23] VITALS: BP 186/69
[2020-07-23 04:00] VITALS: BP 167/92
[2020-07-23 05:22] LABS: BASOPHILS 0.2 % (0-2); EOSINOPHILS 1.3 % (0-7); HEMATOCRIT 34.5 % (36.0-48.0); HEMOGLOBIN 10.7 g/dL (12-16); IMMATURE GRANULOCYTES 0.3 % (0-5); LYMPHOCYTES 15.1 % (15-50); MCH 27.7 pg (26.0-34.0); MEAN PLATELET VOLUME 9.2 fL (7.4-10.4); MONOCYTES 6.9 % (2-11); NEUTROPHIL ABS# 7.56 10x3/uL (1.56-6.13); NEUTROPHILS 76.2 % (40-80); PLATELET COUNT 267 10x3/uL (130-400); RBC 3.86 10x6/uL (4.00-5.40); RDW 15.9 % (11.5-14.5); WBC 9.9 10x3/uL (4.8-10.8)
[2020-07-23 05:37] LABS: ANION GAP 5.8 mmol/L (8-16); CARBON DIOXIDE 33.9 mmol/L (21.0-32.0); CREATININE - SERUM 1.2 mg/dL (0.6-1.3); POTASSIUM - SERUM 3.7 mmol/L (3.5-5.1)
[2020-07-23 05:39] LABS: MCV 89.4 fL (80.0-100.0)
[2020-07-23 05:51] LABS: VANCOMYCIN - TROUGH 27.9 ug/mL (10.0-20.0)
[2020-07-23 09:33] VITALS: BP 127/75
--- NOTE | 2020-07-23 10:30 | NUR ---
PATIENT UP IN CHAIR ,WITHOUT DISTRESS.DOOR OPEN
--- NOTE | 2020-07-23 10:49 | MORECARE ---
CASE MANAGEMENT DISCHARGE SUMMARY PATIENT: DARYL ANAYA UNIT: [id number] ADM DATE: 07/13/20 AGE: 69 : 51 SEX: F ROOM/BED: D.2226 AUTHOR: CORINE GÓMEZ PHYSICIAN: REFERRING PHYSICIAN: TAMEKA ALEMAN MD DATE OF SERVICE: 07/23/20 Discharge Plan Patient Name: DARYL ANAYA Facility: [facility]:[place] : 1950 Planned Disposition: Anticipated Discharge Date: Discharge Date: Expected LOS: Initial Reviewer: [email or web address] Initial Review Date: 07/14/2020 Generated: 07/23/20 11:48 am Comments DCP- Discharge Planning Updated by [email or web address]: Edna Jordan on 07/23/20 9:[address] Patient Name: DARYL ANAYA Admission Status: Elective Accout number: [id number] Admission Date: 07-13-2020 : 1950 Admission Diagnosis:UNSPECIFIED OPEN WOUND, LEFT ANKLE, INITIAL ENCOUNTER Attending: YOKO Current LOS: 10 Anticipated DC Date: Planned Disposition: Primary Insurance: [employer] Discharge Planning Comments: CM WILL FAX IV MED ORDER TO [facility] SOON WE RECEIVE IT. HOME IV ANTIBIOTICS ARE PENDING CULTURES. ANTICIPATE POTENTIALLY TOMORROW. PATIENT IS CURRENT WITH [facility]. CM CONTINUE TO FOLLOW AND ASSIST NEEDED. Chief Hydroelectric Station Operator: Edna Jordan DCP- Discharge Planning Updated by [email or web address]: Eden Schwarz on 07/21/20 1:[address] I HAVE FAXED CLINCIALS TO [facility], PATIENT IS CURRENT WITH THEM AT THIS TIME DCP- Discharge Planning Updated by [email or web address]: Eden Schwarz on 07/21/20 1:[address] [facility] WOUND VAC APPROVED, WAITING ON MICRO FOR IV HOME ABX DCP- Discharge Planning Updated by [email or web address]: Eden Schwarz on 07/20/20 7:[address] SENT THE ORDER TO [facility] WAITING ON SENSIVITIES FOR HOME IV ABX ORDER TO SET UP Last DP export: 07/21/20 1:29 p Patient Name: DARYL ANAYA Page [phone] at 1049 All edits/amendments must be made on the electronic document DICTATION DATE: 07/23/201047 COMMUNITY AMBASSADOR: TAM 07/23/20 1048 RPT#: [id number] DC DATE: STATUS: ADM IN [facility] [address] [place] [address] END OF REPORT
[2020-07-23 12:45] VITALS: BP 137/71
--- NOTE | 2020-07-23 13:34 | MORECARE ---
CASE MANAGEMENT DISCHARGE SUMMARY PATIENT: DARYL ANAYA UNIT: [id number] ADM DATE: 07/13/20 AGE: 69 : 51 SEX: F ROOM/BED: D.2226 AUTHOR: RICO,DOC PHYSICIAN: REFERRING PHYSICIAN: TAMEKA ALEMAN MD DATE OF SERVICE: 07/23/20 Discharge Plan Patient Name: DARYL ANAYA Facility: [facility]:[place] : 1950 Planned Disposition: Anticipated Discharge Date: Discharge Date: Expected LOS: Initial Reviewer: [email or web address] Initial Review Date: 07/14/2020 Generated: 07/23/20 2:33 pm Comments DCP- Discharge Planning Updated by [email or web address]: Edna Jordan on 07/23/20 12:[address] Patient Name: DARYL ANAYA Admission Status: Elective Accout number: [id number] Admission Date: 07-13-2020 : 1950 Admission Diagnosis:UNSPECIFIED OPEN WOUND, LEFT ANKLE, INITIAL ENCOUNTER Attending: YOKO Current LOS: 10 Anticipated DC Date: Planned Disposition: Primary Insurance: [employer]MCR Discharge Planning Comments: ATTEMPTED TO CONTACT PATIENT FOR FURTHER DC PLANNING. NO ANSWER IN HER ROOM. I SPOKE WITH THE NURSE AND SHE SAID SHE IS SLEEPING, SHE WAS AWAKE MOST OF THE NIGHT. I WILL TRY CALLING HER BACK LATER TODAY. Poultry Farm Manager: Edna Jordan DCP- Discharge Planning Updated by [email or web address]: Edna Jordan on 07/23/20 9:[address] Patient Name: DARYL ANAYA Admission Status: Elective Accout number: [id number] Admission Date: 07-13-2020 : 1950 Admission Diagnosis:UNSPECIFIED OPEN WOUND, LEFT ANKLE, INITIAL ENCOUNTER Attending: YOKO Current LOS: 10 Anticipated DC Date: Planned Disposition: Primary Insurance: NOVASYSMCR Discharge Planning Comments: CM WILL FAX IV MED ORDER TO [facility] SOON WE RECEIVE IT. HOME IV ANTIBIOTICS ARE PENDING CULTURES. ANTICIPATE POTENTIALLY TOMORROW. PATIENT IS CURRENT WITH [facility]. CM CONTINUE TO FOLLOW AND ASSIST NEEDED. Poultry Farm Manager: Edna Jordan DCP- Discharge Planning Updated by [email or web address]: Eden Schwarz on 07/21/20 1:[address] I HAVE FAXED CLINCIALS TO [facility], PATIENT IS CURRENT WITH THEM AT THIS TIME DCP- Discharge Planning Updated by [email or web address]: Eden Schwarz on 07/21/20 1:[address] [facility] WOUND VAC APPROVED, WAITING ON MICRO FOR IV HOME ABX DCP- Discharge Planning Updated by [email or web address]: Eden Schwarz on 07/20/20 7:[address] SENT THE ORDER TO [facility] WAITING ON SENSIVITIES FOR HOME IV ABX ORDER TO SET UP Last DP export: 07/23/20 9:49 a Patient Name: DARYL ANAYA Page 25037 at 1334 All edits/amendments must be made on the electronic document DICTATION DATE: 07/23/20 1333 SIGN PAINTER: TAM 07/23/20 1333 RPT#: [id number] DC DATE: STATUS: ADM IN [facility] [address] [place] [address] END OF REPORT
[2020-07-23 16:20] VITALS: BP 127/55
--- NOTE | 2020-07-23 19:15 | NUR ---
PATIENT RESTING WITH NO SIGNS OR SYMPTOMS OF DISTRESS. WEARNIG O2 CANNULA AT THIS TIME. LEFT LOWER EXTREMETY ELEVATED WITH WOUND VAC ADHERED, SUCTIONING AT 150 MMHQ. CPOC.
--- NOTE | 2020-07-23 20:30 | NUR ---
PATIENT AWAKE, VITALS ASSESSED. ASSISTED WITH AMBULATION TO BEDSIDE COMMODE. LARGE BOWEL MOVEMENT AND URINE AT THIS TIME. SHEETS CHANGED DUE TO SLIGHT URINARY INCONTINENCE. PATIENT COMPLAINING OF RESPIRATORY DISCOMFORT. CALL TO RT SARIAH.
--- NOTE | 2020-07-23 21:07 | NUR ---
PATIENT REQUESTING PRN PAIN MEDICATION, ADMINISTERED PER ORDER.
--- NOTE | 2020-07-23 21:15 | NUR ---
SARIAH, RT IN ROOM ASSESSING PATIENT. UPDRAFT TREATMENT ADMINISTERED.
--- NOTE | 2020-07-23 22:00 | NUR ---
PATIENT STATES SHE "FEELS MUCH BETTER" AFTER BREATHING TREATMENT.
[2020-07-23 22:02] VITALS: BP 124/65
--- NOTE | 2020-07-24 01:09 | NUR ---
PATIENT REQUESTS PRN PAIN MEDICATION, ADMINISTERED PER ORDER. CPOC.
--- NOTE | 2020-07-24 05:06 | NUR ---
PATIENT REQUESTS PRN PAIN MEDICATION, ADMINISTERED PER ORDER. DENIES FURTHER NEEDS AT THIS TIME. CPOC.
[2020-07-24 05:15] VITALS: BP 92/52
[2020-07-24 06:55] LABS: CALCIUM 8.8 mg/dL (8.5-10.1); CARBON DIOXIDE 34.9 mmol/L (21.0-32.0); CREATININE - SERUM 1.2 mg/dL (0.6-1.3); POTASSIUM - SERUM 3.9 mmol/L (3.5-5.1)
[2020-07-24 07:01] LABS: BASOPHILS 0.3 % (0-2); EOSINOPHILS 2.2 % (0-7); HEMATOCRIT 33.2 % (36.0-48.0); HEMOGLOBIN 10.4 g/dL (12-16); IMMATURE GRANULOCYTES 0.3 % (0-5); LYMPHOCYTE ABS# 2.68 10x3/uL (1.18-3.74); LYMPHOCYTES 23.5 % (15-50); MCH 28.3 pg (26.0-34.0); MCHC 31.3 g/dL (31.0-37.0); MCV 90.2 fL (80.0-100.0); MEAN PLATELET VOLUME 9.4 fL (7.4-10.4); NEUTROPHIL ABS# 7.72 10x3/uL (1.56-6.13); NEUTROPHILS 67.7 % (40-80); PLATELET COUNT 249 10x3/uL (130-400); RBC 3.68 10x6/uL (4.00-5.40); RDW 16.2 % (11.5-14.5); WBC 11.4 10x3/uL (4.8-10.8)
--- NOTE | 2020-07-24 08:35 | NUR ---
PT ALERT/ORIENTED. ASSISTED TO BSC. PT HAD BM AND VOIDED. ASSISTED BACK TO BED. DID WELL WITH SMALL TRANSFER ASSISTANCE. CL IN REACH. PT DID DESAT INTO THE 80S WHEN WE GOT UP. SOME SOB. CHECKED O2 SAT CAME UP TO 92 %. NO NEEDS AT THIS TIME. WCTM
[2020-07-24 09:51] VITALS: BP 147/66
--- NOTE | 2020-07-24 12:27 | MORECARE ---
CASE MANAGEMENT DISCHARGE SUMMARY PATIENT: DARYL ANAYA UNIT: [id number] ADM DATE: 07/13/20 AGE: 69 : 51 SEX: F ROOM/BED: D.2226 AUTHOR: RICO,DOC PHYSICIAN: REFERRING PHYSICIAN: TAMEKA ALEMAN MD DATE OF SERVICE: 07/24/20 Discharge Plan Patient Name: DARYL ANAYA Facility: [facility]:[place] : 1950 Planned Disposition: Anticipated Discharge Date: Discharge Date: Expected LOS: Initial Reviewer: [email or web address] Initial Review Date: 07/14/2020 Generated: 07/24/20 1:27 pm Comments DCP- Discharge Planning Updated by [email or web address]: Edna Jordan on 07/23/20 12:[address] Patient Name: DARYL ANAYA Admission Status: Elective Accout number: [id number] Admission Date: 07-13-2020 : 1950 Admission Diagnosis:UNSPECIFIED OPEN WOUND, LEFT ANKLE, INITIAL ENCOUNTER Attending: YOKO Current LOS: 10 Anticipated DC Date: Planned Disposition: Primary Insurance: N[employer]YSMCR Discharge Planning Comments: ATTEMPTED TO CONTACT PATIENT FOR FURTHER DC PLANNING. NO ANSWER IN HER ROOM. I SPOKE WITH THE NURSE AND SHE SAID SHE IS SLEEPING, SHE WAS AWAKE MOST OF THE NIGHT. I WILL TRY CALLING HER BACK LATER TODAY. National Facilities Manager: Edna Jordan DCP- Discharge Planning Updated by [email or web address]: Edna Jordan on 07/23/20 9:[address] Patient Name: DARYL ANAYA Admission Status: Elective Accout number: [id number] Admission Date: 07-13-2020 : 1950 Admission Diagnosis:UNSPECIFIED OPEN WOUND, LEFT ANKLE, INITIAL ENCOUNTER Attending: YOKO Current LOS: 10 Anticipated DC Date: Planned Disposition: Primary Insurance: NOVASYSMCR Discharge Planning Comments: CM WILL FAX IV MED ORDER TO [facility] SOON WE RECEIVE IT. HOME IV ANTIBIOTICS ARE PENDING CULTURES. ANTICIPATE POTENTIALLY TOMORROW. PATIENT IS CURRENT WITH [facility]. CM CONTINUE TO FOLLOW AND ASSIST NEEDED. National Facilities Manager: Edna Jordan DCP- Discharge Planning Updated by [email or web address]: Eden Schwarz on 07/21/20 1:[address] I HAVE FAXED CLINCIALS TO [facility], PATIENT IS CURRENT WITH THEM AT THIS TIME DCP- Discharge Planning Updated by [email or web address]: Eden Schwarz on 07/21/20 1:[address] [facility] WOUND VAC APPROVED, WAITING ON MICRO FOR IV HOME ABX DCP- Discharge Planning Updated by [email or web address]: Eden Schwarz on 07/20/20 7:[address] SENT THE ORDER TO [facility] WAITING ON SENSIVITIES FOR HOME IV ABX ORDER TO SET UP External Providers [facility] Next Contact Date: Service Request Date: Service Type: Resolution: Reviewer: Comments: Last DP export: 07/23/20 12:34 p Patient Name: DARYL ANAYA Page 51264 at 1227 All edits/amendments must be made on the electronic document DICTATION DATE: 07/24/207 UNDERWRITING SUPPORT MANAGER: TAM 07/24/20 1227 RPT#: [id number] DC DATE: STATUS: ADM IN [facility] [address] [place] [address] END OF REPORT
--- NOTE | 2020-07-24 13:00 | NUR ---
PT CALLED TO HAVE HER DOOR SHUT. SHE WAS WANTING TO NAP. CL IN REACH. WCTM
--- NOTE | 2020-07-24 13:26 | NUR ---
Nutrition follow-up: Pt receiving a consistent CHO diet with po intake ~50% of meals Labs reviewed: glucse under good to fair control Wt: 199# +BM PO intake fair at this time Will continue to provide food choices and honor food preferences within diet restrictions. RDN follow-up: 07/28/20
[2020-07-24 14:08] VITALS: BP 147/58
[2020-07-24 21:11] VITALS: BP 125/61
[2020-07-25 00:54] VITALS: BP 91/37
--- NOTE | 2020-07-25 04:45 | NUR ---
I have reviewed this patient and I concur with the Shift Assessment completed by the Licensed Practical Nurse today this shift.
[2020-07-25 06:05] VITALS: BP 105/51
[2020-07-25 09:35] VITALS: BP 94/59
[2020-07-25 13:25] VITALS: BP 139/58
[2020-07-25 16:08] LABS: AEROBE ID Final report (())
[2020-07-25 18:22] VITALS: BP 97/54
--- NOTE | 2020-07-25 19:30 | NUR ---
PATIENT RESTING IN BED AND DENIES NEEDS AT THIS TIME. BED IN LOWEST POSITION AND CALL LIGHT WITHIN REACH. ENCOURAGED THE PATIENT TO CALL IF THEY HAVE NEEDS.
[2020-07-25 20:00] VITALS: BP 132/56
--- NOTE | 2020-07-25 20:23 | NUR ---
ADMINISTERED MEDS PER ORDERS. PATIENT BERNARDO WELL. ENCOURAGED PATIENT TO CALL WITH NEEDS.
[2020-07-26] VITALS: BP 149/71
[2020-07-26 04:00] VITALS: BP 121/72
[2020-07-26 07:51] LABS: BASOPHILS 0.2 % (0-2); EOSINOPHILS 0.7 % (0-7); HEMATOCRIT 33.9 % (36.0-48.0); IMMATURE GRANULOCYTES 2.7 % (0-5); LYMPHOCYTE ABS# 1.35 10x3/uL (1.18-3.74); LYMPHOCYTES 15.3 % (15-50); MCH 27.5 pg (26.0-34.0); MCHC 29.5 g/dL (31.0-37.0); MCV 93.1 fL (80.0-100.0); MEAN PLATELET VOLUME 9.1 fL (7.4-10.4); MONOCYTES 7.8 % (2-11); NEUTROPHIL ABS# 6.48 10x3/uL (1.56-6.13); NEUTROPHILS 73.3 % (40-80); PLATELET COUNT 213 10x3/uL (130-400); RBC 3.64 10x6/uL (4.00-5.40); WBC 8.8 10x3/uL (4.8-10.8)
--- NOTE | 2020-07-26 08:00 | NUR ---
PT ASSESSED. CL IN REACH. NO NEEDS AT THIS TIME. WCTM
[2020-07-26 08:11] LABS: ALBUMIN 2.5 g/dL (3.4-5.0); ALKALINE PHOSPHATASE 99 U/L (30-120); ALT (SGPT) 7 U/L (10-68); BILIRUBIN - TOTAL 0.18 mg/dL (0.2-1.3); CALCIUM 8.3 mg/dL (8.5-10.1); CARBON DIOXIDE 33.2 mmol/L (21.0-32.0); CHLORIDE - SERUM 102 mmol/L (98-107); POTASSIUM - SERUM 4.3 mmol/L (3.5-5.1); PROTEIN - SERUM 5.9 g/dL (6.4-8.2); SODIUM 142 mmol/L (136-145); UREA NITROGEN 20 mg/dL (7-18); VANCOMYCIN - RANDOM 16.9 ug/mL (10.0-20.0)
[2020-07-26 08:12] LABS: CALC OSMOLALITY 292 mosm/kg (275-300); CREATININE - SERUM 0.2 mg/dL (0.6-1.3); GLUCOSE 233 mg/dL (74-106); eGFR NON AFRICAN AMERICAN > 90 mL/min (90-120)
--- NOTE | 2020-07-26 11:04 | NUR ---
WILL TALK TO DR ALEMAN ABOUT CHANGING PRN BREATHING TX TO SCHECULED. WELL SOMETHING FOR RASH/ YEAST INFECTION. WCTM
[2020-07-26 11:14] VITALS: BP 123/48
[2020-07-26 11:25] VITALS: BP 121/50
--- NOTE | 2020-07-26 11:51 | NUR ---
PT ASSISTED TO SIT IN CHAIR AT THIS TIME. CL IN REACH. MEDS GIVEN PER EMAR. WCTM
[2020-07-26 18:13] VITALS: BP 104/66
--- NOTE | 2020-07-26 19:00 | NUR ---
BEDSIDE REPORT RECEIVED AND CARE OF PT ASSUMED. PT LYING IN SUPINE POSITION WITH EYES CLOSED AND EASY RESPIRATIONS. RIGHT PICC LINE PATENT WITH 1/2 NS INFUSING AT 50 ML/HR. WOUND VAC IN PLACE ON LEFT ANKLE WELL COMPRESSED WITH NO LEAKAGE ALARMS. O2 IN USE VIA HIGH FLOW NC AT 8L. WILL MONITOR FOR NEEDS.
[2020-07-26 20:00] VITALS: BP 110/47
--- NOTE | 2020-07-26 21:09 | NUR ---
HS MEDICATIONS GIVEN. PT DECLINED COLACE. WILL CONTINUE TO MONITOR FOR NEEDS.
--- NOTE | 2020-07-26 21:10 | NUR ---
FSBS 241 THIS CHECK REQUIRING COVERAGE WITH 4 UNITS OF INSULIN PER SLIDING SCALE.
--- NOTE | 2020-07-26 23:06 | NUR ---
PT C/O SOB AND VERY ANXIOUS. SPO2 94% ON 8L HIGH FLOW. PAGED RT TO JUSTIN. CALLED [facility]SAY [facility] WHO GAVE ORDER FOR ALBUTERAL UPDRAFT Q2HR PRN SOB. SHE WILL DISCUSS WITH DR ALEMAN IN AM ABOUT POSSIBLE PULMONOLOGY CONSULT.
[2020-07-27] VITALS: BP 170/49
[2020-07-27 04:00] VITALS: BP 160/104
[2020-07-27 05:33] LABS: BASOPHILS 0.2 % (0-2); EOSINOPHILS 0.8 % (0-7); HEMATOCRIT 33.4 % (36.0-48.0); HEMOGLOBIN 9.9 g/dL (12-16); IMMATURE GRANULOCYTES 1.5 % (0-5); LYMPHOCYTE ABS# 2.01 10x3/uL (1.18-3.74); LYMPHOCYTES 19.4 % (15-50); MCH 27.6 pg (26.0-34.0); MCHC 29.6 g/dL (31.0-37.0); MEAN PLATELET VOLUME 9.1 fL (7.4-10.4); MONOCYTES 9.4 % (2-11); NEUTROPHIL ABS# 7.11 10x3/uL (1.56-6.13); NEUTROPHILS 68.7 % (40-80); PLATELET COUNT 223 10x3/uL (130-400); RBC 3.59 10x6/uL (4.00-5.40); WBC 10.4 10x3/uL (4.8-10.8)
[2020-07-27 06:00] LABS: ALBUMIN 2.6 g/dL (3.4-5.0); ANION GAP 10.6 mmol/L (8-16); BILIRUBIN - TOTAL 0.23 mg/dL (0.2-1.3); CALCIUM 8.6 mg/dL (8.5-10.1); CARBON DIOXIDE 31.5 mmol/L (21.0-32.0); POTASSIUM - SERUM 4.1 mmol/L (3.5-5.1); PROTEIN - SERUM 6.8 g/dL (6.4-8.2)
[2020-07-27 06:03] LABS: CREATININE - SERUM 1.6 mg/dL (0.6-1.3)
--- NOTE | 2020-07-27 08:00 | NUR ---
ASSESSMENT PER FLOW SHEET. RESP THERAPY CALLED TO ROOM. PATIENTS SATS 86% ON 8 LITERS PER NASAL CANULA, 02 INCREASED TO 10 LITERS PER NASAL CANULA, SATS 94-96%. MONITOR FOR NEEDS.
[2020-07-27 08:25] VITALS: BP 143/89
[2020-07-27 09:27] LABS: C-REACTIVE PROTEIN 2.9 mg/dL (0.0-0.9); CKMB 0.3 U/L (0.0-3.6); CREATINE KINASE 21 UL (21-215); FERRITIN 61 ng/mL (3-244)
[2020-07-27 09:39] LABS: TROPONIN-I < 0.017 ng/mL (0.000-0.060)
[2020-07-27 10:31] LABS: SARS-CoV-2 ANTIGEN NEGATIVE- SARS-COV-2 (NEGATIVE)
[2020-07-27 12:29] VITALS: BP 108/50
[2020-07-27 13:08] LABS: ERYTHROCYTE SEDIMENTATION RATE 63 mm/hr (0-30)
--- NOTE | 2020-07-27 13:35 | NUR ---
RESP THERAPY CALLED FOR TX PER PATIENT REQUEST.FSBS PER MAR
--- NOTE | 2020-07-27 16:45 | NUR ---
PATIENT STILL IN XRAY FOR LUNG SCAN. I WENT TO UNIT TO FLUSH PICC, BUT CONTRAST STILL IN LINE AFTER FLUSHING MULTIPLE TIMES. RRT TO CALL ANOTHER STAFF MEMBER FOR INSTRUCTION. PATIENT STAYS IN XRAY.
--- NOTE | 2020-07-27 17:56 | NUR ---
BACK FROM XRAY. PATIENT WITHOUT DISTRESS.MEDS PER MAR
--- NOTE | 2020-07-27 19:00 | NUR ---
BEDSIDE REPORT RECEIVED AND CARE OF PT ASSUMED. PT LYING IN LOW CULVER'S POSITION VISITING WITH DAUGHTER. IV TO LEFT AC PATENT WITH 1/2 NS INFUSING AT 50 ML/HR. WOUND VAC IN PLACE ON LEFT ANKLE, WELL COMPRESSED WITH NO LEAKAGE ALARMS. WILL MONITOR FOR NEEDS.
[2020-07-27 19:59] VITALS: BP 135/78
--- NOTE | 2020-07-27 22:20 | NUR ---
CALLED RT PER PT REQUEST FOR CADE UPDRAFT TREATMENT FOR SOB.
[2020-07-28 00:41] VITALS: BP 136/74
--- NOTE | 2020-07-28 01:59 | NUR ---
CALLED RT PER PT REQUEST FOR BREATHING TX FOR SOB. ASKED RT IF SHE CAN BE PLACED ON HER BIPAP.
--- NOTE | 2020-07-28 02:07 | NUR ---
PT PLACED ON BIPAP BY RT. ALSO PROVIDED PT WITH A FAN FOR CONTINUOUSLY C/O THAT ROOM IS HOT...DESPITE THERMOSTAT BEING ON 55 DEGREES. WILL CONTINUE TO MONITOR FOR NEEDS.
[2020-07-28 04:39] VITALS: BP 141/82
--- NOTE | 2020-07-28 04:40 | NUR ---
GAVE ZOFRAN 4 MG IVP FOR C/O NAUSEA. WILL MONITOR FOR EFFECTIVENESS.
[2020-07-28 06:17] LABS: ALBUMIN 2.6 g/dL (3.4-5.0); ANION GAP 9.3 mmol/L (8-16); BILIRUBIN - TOTAL 0.3 mg/dL (0.2-1.3); CALCIUM 9.2 mg/dL (8.5-10.1); CARBON DIOXIDE 30.7 mmol/L (21.0-32.0); CREATININE - SERUM 1.3 mg/dL (0.6-1.3)
[2020-07-28 06:47] LABS: HEMATOCRIT 35.4 % (36.0-48.0); HEMOGLOBIN 11.1 g/dL (12-16); LYMPHOCYTE ABS# 1.92 10x3/uL (1.18-3.74); MCH 28.5 pg (26.0-34.0); MCHC 31.4 g/dL (31.0-37.0); MEAN PLATELET VOLUME 9.9 fL (7.4-10.4); NEUTROPHIL ABS# 7.56 10x3/uL (1.56-6.13); RBC 3.89 10x6/uL (4.00-5.40); RDW 16.3 % (11.5-14.5); WBC 10.5 10x3/uL (4.8-10.8)
[2020-07-28 06:50] LABS: PLATELET COUNT 300 10x3/uL (130-400)
[2020-07-28 08:48] VITALS: BP 184/87
--- NOTE | 2020-07-28 09:00 | NUR ---
ASSESSMENT PER FLOW SHEET. PATIENT VERY TEARFUL TODAY. SHE IS WITHOUT DISTRESS AT PRESENT. FALL PREVENTION BED ALAM. DOOR OPEN
--- NOTE | 2020-07-28 10:29 | NUR ---
1030--- PLACE BACK ON BIPAP PER ORDERS SPO2--90%
[2020-07-28 13:14] VITALS: BP 134/59
[2020-07-28 14:23] LABS: ANISOCYTOSIS OCC; LYMPHOCYTES 18 % (15-50); MONOCYTES 12 % (2-11); NEUTROPHILS 70 % (40-80); PLATELET ESTIMATE NORMAL; ROULEAUX OCC
--- NOTE | 2020-07-28 14:54 | NUR ---
Nutrition reasessment/follow-up: Pt continues with inadequate oral intake R/T breathing issues on BIPAP and/or HF NC AEB continued po intake < 50% of meals. Ht: 5'5" Wt: 199# Estimated nutritional needs: 8175-8237 kcal - 25-35 kcal/kg AdjBW of 65 kg 65-85 g protein - 1.0-1.3 gm/kg AdjBW 8904-8523 ml fluid - or per MD Current diet order: Consistent CHO PO intake ~50% of some meals; PO intake 07/27/20 was nothing recorded Pt reports feeling better today. Goals: - PO intake =/> 75% of meals, snacks - Meet at least 75% of estimated fluid need - Stable dry wt +/-5# Interventions: Will continue to provide food choices and honor food preferences Will continue to offer and encourage Glucerna Shake Pt may benefit from an appetite stimulant; and/or ProcalAmine PPN @ 75 ml/hr short-term. RDN follow-up: 07/31/20
[2020-07-28 16:07] LABS: CKMB 0.5 U/L (0.0-3.6); CREATINE KINASE 20 UL (21-215)
[2020-07-28 16:09] LABS: TROPONIN-I < 0.017 ng/mL (0.000-0.060)
--- NOTE | 2020-07-28 16:10 | NUR ---
OT NOTE: PT REQUIRED MAX A FOR POSITIONING. PT IS ON BYPAP AT THIS TIME. 105-120 THANK YOU,ALESHIA KIRKLAND
[2020-07-28 18:05] VITALS: BP 128/76
--- NOTE | 2020-07-28 19:57 | NUR ---
CALL TO SON MATTHIEU TO INFORM HIM OF PATIENT BEING MOVED TO ROOM 0.
[2020-07-28 21:50] VITALS: BP 162/62
--- NOTE | 2020-07-28 22:09 | NUR ---
PT AWAKE, ALERT, TRANSFERRED FROM [facility]. WOUND VAC TO LEFT FOOT
[2020-07-29] VITALS (15 sets, daily range): BP systolic 93–186; BP diastolic 49–108
--- NOTE | 2020-07-29 00:19 | NUR ---
24 G PIV TO LEFT ARM NOT ABLE TO FLUSH NOTED TO BE KINKED UNABLE TO REPOSITON IV DC'D ATTEMPTED TO REINSERT PIV MULTIPLE TIMES WITHOUT SUCCESS
--- NOTE | 2020-07-29 02:28 | NUR ---
pt trasferred from [place] with right PICC line order in chart for IR to eval PICC for not working. Chandana from IR came to pt bedside, assessed PICC and reported both lines with blood return and able to flush. Reported he would discuss with MD and call unit to clarify if ok to use PICC. Chandana with IR called, ok to use right PICC line. Right PICC line assessed red port flushing well excellent blood return. IV fluids and Zosyn restarte via right PICC line
--- NOTE | 2020-07-29 07:00 | NUR ---
NURSE IN ROOM THIS AM WITH PATIENT, PATIENT IS SLEEPY BUT IS ABLE TO ANSWER ALL OF ORIENTATION QUESTIONS. PLAN OF CARE REVIEWED AND ASSESSMENT HAS BEEN COMPLETED. JUNE DENIES QUESTIONS. CALL LIGHT IN REACH
[2020-07-29 07:06] LABS: ALBUMIN 2.5 g/dL (3.4-5.0); ANION GAP 2.7 mmol/L (8-16); BILIRUBIN - TOTAL 0.22 mg/dL (0.2-1.3); CALCIUM 9.3 mg/dL (8.5-10.1); CARBON DIOXIDE 39.2 mmol/L (21.0-32.0); CREATININE - SERUM 1.4 mg/dL (0.6-1.3); POTASSIUM - SERUM 3.9 mmol/L (3.5-5.1); PROTEIN - SERUM 6.8 g/dL (6.4-8.2)
--- NOTE | 2020-07-29 08:00 | NUR ---
PATIENT IS SITTING UP TO SIDE OF BED FEEDING SELF BREAKFAST. PATIENT DENIES NEEDS. CALL LIGHT IN REACH
[2020-07-29 08:12] LABS: BASOPHILS 0.4 % (0-2); EOSINOPHILS 1.2 % (0-7); HEMATOCRIT 34.7 % (36.0-48.0); HEMOGLOBIN 10.2 g/dL (12-16); IMMATURE GRANULOCYTES 0.6 % (0-5); LYMPHOCYTE ABS# 1.66 10x3/uL (1.18-3.74); LYMPHOCYTES 17.5 % (15-50); MCH 27.6 pg (26.0-34.0); MCHC 29.4 g/dL (31.0-37.0); MEAN PLATELET VOLUME 9.9 fL (7.4-10.4); MONOCYTES 6.9 % (2-11); NEUTROPHIL ABS# 6.94 10x3/uL (1.56-6.13); NEUTROPHILS 73.4 % (40-80); PLATELET COUNT 243 10x3/uL (130-400); RDW 16.3 % (11.5-14.5); WBC 9.5 10x3/uL (4.8-10.8)
[2020-07-29 08:14] LABS: MCV 93.8 fL (80.0-100.0)
--- NOTE | 2020-07-29 09:00 | NUR ---
NURSE GIVES PATIENT HER AM MEDS. SHE REFUSES STOOL SOFTENER THIS AM. PT DENIES NEEDS. CALL LIGHT IN REACH
--- NOTE | 2020-07-29 11:00 | NUR ---
NURSE CHECKS PT'S SUGAR THIS AM. PATIENT REQUIRES 2 UNITS
--- NOTE | 2020-07-29 11:51 | NUR ---
Rehab Prescreening [id number] recieved and thechart has been reviewed. He is managed Medicare and will require a Authorization for the Rehab. He is still on 10 liters of 02 and max assist for bed mobility. Once he is weaned down on his 02 information will be submitted for their review. Cassie Fields RN Clinical Liaison, Rehab
--- NOTE | 2020-07-29 12:00 | NUR ---
RESPIRATORY COMES TO ASK NURSE IF PATIENT HAS BEEN VERY LETHARGIC ALL DAY. NURSE LETS THEM KNOW THAT SHE HAS NOT. NURSE GOES INTO ROOM AND IS ABLE TO GET PATIENT TO WAKE WITH VERBAL STIMULI, BUT PATIENT IS NOT ABLE TO STAY AWAKE LONG. RESP IN ROOM TO DO AN ABG. NURSE REPORTS RESULTS TO DAREK. HE SAYS TO RECHECK IN AN HOUR
--- NOTE | 2020-07-29 13:10 | MORECARE ---
CASE MANAGEMENT DISCHARGE SUMMARY PATIENT: DARYL ANAYA UNIT: [id number] ADM DATE: 07/13/20 AGE: 69 : 51 SEX: F ROOM/BED: D.5040 AUTHOR: RICODOC PHYSICIAN: REFERRING PHYSICIAN: TAMEKA ALEMAN MD DATE OF SERVICE: 07/29/20 Discharge Plan Patient Name: DARYL ANAYA Facility: [facility]:[place] : 1950 Planned Disposition: Anticipated Discharge Date: Discharge Date: Expected LOS: Initial Reviewer: [email or web address] Initial Review Date: 07/14/2020 Generated: 07/29/20 2:09 pm Comments DCP- Discharge Planning Updated by [email or web address]: Edna Jordan on 07/29/20 12:[address] Patient Name: DARYL ANAYA Admission Status: Elective Accout number: [id number] Admission Date: 07-13-2020 : 1950 Admission Diagnosis:UNSPECIFIED OPEN WOUND, LEFT ANKLE, INITIAL ENCOUNTER Attending: YOKO Current LOS: 16 Anticipated DC Date: Planned Disposition: Primary Insurance: NOVASYSMCR Discharge Planning Comments: IV MED ORDER FAXED TO [facility]. I HAVE LET THEM KNOW PATIENT IS NOT READY FOR DISCHARGE YET. I WILL PLACE IV ORDER SHEET ON PATIENT CHART. Card Feeder: Edna Jordan DCP- Discharge Planning Updated by [email or web address]: Edna Jordan on 07/23/20 12:[address] Patient Name: DARYL ANAYA Admission Status: Elective Accout number: [id number] Admission Date: 07-13-2020 : 1950 Admission Diagnosis:UNSPECIFIED OPEN WOUND, LEFT ANKLE, INITIAL ENCOUNTER Attending: YOKO Current LOS: 10 Anticipated DC Date: Planned Disposition: Primary Insurance: NOVASYSMCR Discharge Planning Comments: ATTEMPTED TO CONTACT PATIENT FOR FURTHER DC PLANNING. NO ANSWER IN HER ROOM. I SPOKE WITH THE NURSE AND SHE SAID SHE IS SLEEPING, SHE WAS AWAKE MOST OF THE NIGHT. I WILL TRY CALLING HER BACK LATER TODAY. Card Feeder: Edna Jordan DCP- Discharge Planning Updated by [id number]: Edna Jordan on 07/23/20 9:[address] Patient Name: DARYL ANAYA Admission Status: Elective Accout number: [id number] Admission Date: 07-13-2020 : 1950 Admission Diagnosis:UNSPECIFIED OPEN WOUND, LEFT ANKLE, INITIAL ENCOUNTER Attending: YOKO Current LOS: 10 Anticipated DC Date: Planned Disposition: Primary Insurance: [facility] Discharge Planning Comments: CM WILL FAX IV MED ORDER TO [facility] SOON WE RECEIVE IT. HOME IV ANTIBIOTICS ARE PENDING CULTURES. ANTICIPATE POTENTIALLY TOMORROW. PATIENT IS CURRENT WITH [facility]. CM CONTINUE TO FOLLOW AND ASSIST NEEDED. Card Feeder: Edna Jordan DCP- Discharge Planning Updated by [email or web address]: Eden Schwarz on 07/21/20 1:[address] I HAVE FAXED CLINCIALS TO [facility], PATIENT IS CURRENT WITH THEM AT THIS TIME DCP- Discharge Planning Updated by [email or web address]: Eden Schwarz on 07/21/20 1:[address] [facility] WOUND VAC APPROVED, WAITING ON MICRO FOR IV HOME ABX DCP- Discharge Planning Updated by [email or web address]: Eden Schwarz on 07/20/20 7:[address] SENT THE ORDER TO [facility] WAITING ON SENSIVITIES FOR HOME IV ABX ORDER TO SET UP Last DP export: 07/24/20 11:27 a Patient Name: DARYL ANAYA Page 65068 at 1310 All edits/amendments must be made on the electronic document DICTATION DATE: 07/29/20 1309 FORENSIC PATHOLOGIST: TAM 07/29/20 1309 RPT#: [id number] DC DATE: STATUS: ADM IN [facility] [address] [place] [address] END OF REPORT
--- NOTE | 2020-07-29 13:45 | NUR ---
NURSE RESULTS ABG TO DAREK BOATENG ORDERS NURSE TO SEND PT TO ICU
--- NOTE | 2020-07-29 14:15 | NUR ---
NURSE TRANSFERS PATIENT TO ICU VIA BED, RESPIRTORY WITH NURSE DURING TRANSPORT. PATIENT IS ALERT BUT LETHARGIC DURING TRANSFER PROCESS. NURSE IS ABLE TO TALK WITH PATIENT ABOUT WHERE SHE IS GOING AND WHY. PT SEEMS TO UNDERSTAND AND IS TEARFUL. TOWER HELPER TAKES PATIENT'S BELONGINGS TO PATIENT'S ROOM. PATIENT HAS HER PHONE WITH HER.
--- NOTE | 2020-07-29 15:55 | NUR ---
OT NOTE: DCD TO ICU DIAMOND TOVAR, OTR/L
[2020-07-30] VITALS (23 sets, daily range): BP systolic 96–145; BP diastolic 52–100
--- NOTE | 2020-07-30 04:17 | NUR ---
SPOKE TO LAUREL ABDULLAHI ABOUT PATIENT TEMP 100.6. PHARMACEUTICAL SERVICE REPRESENTATIVE ORDERED TYLENOL PRN 650MG Q6HR PRN.
[2020-07-30 04:43] LABS: BASOPHILS 0.2 % (0-2); EOSINOPHILS 0.5 % (0-7); HEMATOCRIT 32.5 % (36.0-48.0); HEMOGLOBIN 9.8 g/dL (12-16); IMMATURE GRANULOCYTES 0.5 % (0-5); LYMPHOCYTES 20.9 % (15-50); MCH 27.5 pg (26.0-34.0); MCHC 30.2 g/dL (31.0-37.0); MEAN PLATELET VOLUME 9.7 fL (7.4-10.4); MONOCYTES 9.6 % (2-11); NEUTROPHILS 68.3 % (40-80); PLATELET COUNT 255 10x3/uL (130-400); RBC 3.56 10x6/uL (4.00-5.40)
[2020-07-30 04:50] LABS: ALBUMIN 2.3 g/dL (3.4-5.0); ANION GAP 9.7 mmol/L (8-16); BILIRUBIN - TOTAL 0.5 mg/dL (0.2-1.3); CALCIUM 8.6 mg/dL (8.5-10.1); CARBON DIOXIDE 34.8 mmol/L (21.0-32.0); CREATININE - SERUM 1.6 mg/dL (0.6-1.3); POTASSIUM - SERUM 3.5 mmol/L (3.5-5.1); PROTEIN - SERUM 6.1 g/dL (6.4-8.2)
[2020-07-30 04:53] LABS: MCV 91.3 fL (80.0-100.0)
--- NOTE | 2020-07-30 06:21 | NUR ---
PATIENT WITH NO ACUTE EVENTS OVER NIGHT. PATIENT WAS ANXIOUS IN THE BEGINNING OF THE SHIFT AND RECEIVED 2 DOSES OF VERSED. PATIENT WITH TMAX OF 100.6. RECEIVED TYLENOL AND CAME DOWN TO 100.2. PATIENT RECEIVED A CHG BATH AND NAM CARE. PATIENT HAD MARGINAL URINE OUTPUT FOR THE SHIFT.
--- NOTE | 2020-07-30 09:50 | NUR ---
CPAP TRIAL STARTED NOW 17/01 60%. RSBI IS 40. PT IS DOING WELL AT THIS TIME.
--- NOTE | 2020-07-30 11:34 | NUR ---
ENDED P/S TRIAL AT 1130 DUE TO PATIENT BECOMING ANXIOUS/RESPIRATORY RATE WAS 35. PATIENT IS BACK ON AC VC 20/500/60%
[2020-07-31] VITALS (23 sets, daily range): BP systolic 89–141; BP diastolic 59–121
--- NOTE | 2020-07-31 06:24 | NUR ---
NO ACUTE EVENTS OVER NIGHT. PATIENT RECEIVED A CHG BATH AND NAM CARE. PATIENT TURED Q2H ALONG WITH MOUTH CARE.
--- NOTE | 2020-07-31 07:00 | NUR ---
REPORT RECEIVED. ASSESSMENT COMPLETE PER FLOW SHEET. VSS.
--- NOTE | 2020-07-31 07:56 | OP ---
PATIENT NAME: DARYL LOVETT MEDICAL RECORD: [id number] :52 LOCATION:[facility] D.2313 ADMISSION DATE:07/13/20 SURGEON: TAMEKA ALEMAN MD DATE OF OPERATION: 07/16/2020 PREOPERATIVE DIAGNOSES: 1. Open wounds left ankle, status post I&D with wound VAC placement. 2. Left ankle infection. 3. History of ORIF left ankle fracture. POSTOPERATIVE DIAGNOSES: 1. Open wounds left ankle, status post I&D with wound VAC placement. 2. Left ankle infection. 3. History of ORIF left ankle fracture. PROCEDURE PERFORMED: 1. I&D left ankle (skin, subcutaneous tissue, bone). 2. Complex closure medial left ankle wound (4.5 cm). 3. Application of wound VAC, left ankle (less than 50 cm-squared). INDICATIONS FOR THE PROCEDURE: Ms. Lovett is a 69-year-old female who fell and fractured her ankle approximately 3 months ago, developed a wound over the anterior and medial aspect of the ankle. The wound has failed to heal and she presents today for repeat I&D of the wound with wound VAC change and closure of the medial wound. Risks, benefits and alternatives of surgery were discussed with the patient. Consent was obtained. DESCRIPTION OF THE PROCEDURE: The patient was met in the holding area where her identity and confirmation of procedure was performed. Left lower extremity was marked. She was taken to the operating room where she was placed supine on the operating table, and anesthesia was administered. A tourniquet was applied to the left thigh and left leg was prepped and draped in the usual sterile fashion. The patient is on scheduled antibiotics; therefore, did not receive any immediately preop. A timeout was performed before initiating the case. On initiation of the case, the wounds were evaluated. The tissue over the anterior wound was mostly clean. There was some yellow fibrinous tissue around the edges and the tendon at the anterior bed, it was nonviable and was able to be debrided. The tendons that were more laterally were salvageable. Again, the medial aspect of the wound opened into the ankle joint with an unstable piece of the medial malleolus at this level as well. The medial wound appeared to have good granulation tissue with just some small amount of tissue necrosis along the inferior border. The medial wound was irrigated thoroughly with saline. I was then able to be closed with 3-0 nylon suture measuring 4.5 cm. Anterior wound was thoroughly debrided including the ankle joint. A curette was used over the anterior aspect of the tibia to try to stimulate some bleeding tissue. A wound VAC was then placed, the wound measuring 7 x 4 cm. Wound VAC was placed and noted to have good compression. The ankle was then covered with a sterile dressing and the leg was placed into a posterior splint. The patient was turned back over to anesthesia where she was awakened and taken to recovery room in stable condition. POSTOPERATIVE PLAN: The patient is going to return to the floor for continued postoperative care. Continue to monitor her culture results, which are now showing multiple Gram-positive organisms and tailor her antibiotics accordingly. Plan to return to the operating room in 3-4 days. OPERATIVE REPORT [id number] DARYL LOVETT ANESTHESIA: General LMA. COMPLICATIONS: None. ESTIMATED BLOOD LOSS: 10 mL. TRANSINT:[id number] Voice Confirmation ID: [id number] DOCUMENT ID: [id number] TAMEKA ALEMAN MD at 0756 CC: [id number] DICTATION DATE: 07/16/20 165 CATTLE SHIPPER: 07/16/20 1827 ADM IN [place] [id number] [place] [address]
--- NOTE | 2020-07-31 08:04 | OP ---
PATIENT NAME: DARYL LOVETT MEDICAL RECORD: [id number] :52 LOCATION:[facility] D.2313 ADMISSION DATE:07/13/20 SURGEON: TAMEKA ALEMAN MD DATE OF OPERATION: 07/19/2020 PREOPERATIVE DIAGNOSES: 1. Open wound, left ankle, status post incision and drainage with wound VAC placement. 2. Left ankle infection. 3. History of open reduction and internal fixation of left ankle fracture with incomplete union of the medial malleolus. POSTOPERATIVE DIAGNOSES: 1. Open wound, left ankle, status post incision and drainage with wound VAC placement. 2. Left ankle infection. 3. History of open reduction and internal fixation of left ankle fracture with incomplete union of the medial malleolus. PROCEDURE PERFORMED: 1. Irrigation and debridement of left ankle (skin, subcutaneous tissue, bone). 2. ORIF of left medial malleolus. 3. Application of Kerecis tissue graft. 4. Application of wound VAC, left ankle (less than 50 cm-squared). INDICATIONS FOR THE PROCEDURE: Ms. Lovett is a 69-year-old female with history of left ankle fracture and open wound over the anterior ankle. She returned to the operating room today for repeat I&D with fixation of the medial malleolus and placement of tissue graft. Risks, benefits and alternatives of surgery were discussed with the patient and consent was obtained. DESCRIPTION OF PROCEDURE: The patient was met in the holding area, where her identity and confirmation of procedure was performed. Left lower extremity was marked. She was taken to the operating room where she was placed supine on the operating table and anesthesia was administered. A tourniquet was applied to left thigh and left leg was prepped and draped in a sterile fashion. The patient was on scheduled antibiotics. Therefore did not receive any immediately preop. A timeout was performed prior to initiating the case. On the initiation of the case, the wounds were evaluated. There was good granulation tissue around the edges. Still not a lot of bleeding from the tissues over the anterior tibia bone and the tendons laterally. Did not appear to be any significant necrotic tissue. The medial malleolus fracture is unstable and rotates with her foot position. On imaging, the medial malleolar screw has backed out slightly. It was not providing adequate fixation. It was therefore decided to place a second screw to help stabilize this fixation. Under fluoroscopy, a K-wire was placed at the medial malleolus. Reduction was held and the K-wire was advanced into the distal portion of the tibia. It was measured to 55 and a 55 Bee compression screw was then placed and securely tightened. The other screw that was present was also tightened to secure the fixation which showed improved stability of the medial malleolus. We then continued with our debridement, irrigating the wound thoroughly with saline. We attempted to repair the anterior capsule of the bone through bone tunnels to the anterior cortex of the distal tibia, but the bone was not stable enough to support the repair and this was therefore abandoned. Thorough debridement of the wound was performed. The skin edges were trimmed slightly to provide a good OPERATIVE REPORT [id number] DARYL LOVETT healing wound edge. The wound measured 7 x 4 cm. Two layers of Kerecis xenograft were then applied to the wound. The top layer was sutured into place. A wound VAC was then placed over this. We laid Adaptic down over the graft and then a wound VAC over this area. We had good compression. This was confirmed in the operating room. The patient was placed into a splint, turned back over to anesthesia, where she was awakened, extubated, and taken to recovery room in stable condition. POSTOPERATIVE PLAN: The patient will return to the floor for continued postoperative care. We will continue her IV antibiotics as well as these culture results. Plan to check the wound VAC again on Monday to assess for the viability of the graft, but hopefully this will begin to provide a tissue covering for that ankle and facilitate healing. COMPLICATIONS: None. ESTIMATED BLOOD LOSS: 25 mL. ANESTHESIA: General LMA. TRANSINT:[id number] Voice Confirmation ID: [id number] DOCUMENT ID: [id number] TAMEKA ALEMAN MD at 0804 CC: [id number] DICTATION DATE: 07/19/20 1315 SPORTS DOCTOR: 07/19/20 213 ADM IN [place] [id number] [place] [id number]
--- NOTE | 2020-07-31 12:05 | NUR ---
PT EXTUBATED PER ORDER. NEEDS MET. VSS
--- NOTE | 2020-07-31 12:43 | NUR ---
Nutrition follow-up: PT discussed durint IDT team rounds Pt intubated with possible extubation today; no nutrition support starting today per Labs reviedwed Wt: 242# RDN follow-up: 08/03/20
--- NOTE | 2020-07-31 14:15 | NUR ---
DR ALEMAN AT BEDSIDE. L LEG WOUND VAC APPLIED. NEW ORDERS REICEVED.
--- NOTE | 2020-07-31 15:44 | NUR ---
Rehab Note- Continue to follow at this time. Patient is now in ICU on vent. Will continue to follow. Thank you for this referral! Criss Stevens RN Clinical Liaison, [facility] Rehab
--- NOTE | 2020-07-31 21:12 | NUR ---
PATIENT ON NONREBREATHER BECAME SOMNOLENT. NOTIFIED DR OSWALD. ORDERED BIPAP 18/8 AT 40% AND TO DC IV FLUIDS.
[2020-08-01] VITALS (22 sets, daily range): BP systolic 80–149; BP diastolic 48–118
--- NOTE | 2020-08-01 00:31 | NUR ---
PATIENT PLACED ON BIPAP AT 2119 AT 50% FI02. PATIENT REQUIRED INCREASED AMOUNTS OF O2 FINALLY AT 100% FI02 AT 2229. PATIENT SATS WERE AROUND 97% AND HAVE SUSTAINED. 0000-PATIENT MORE ALERT AND RESPONSIVE. NODDING APPROPRIATELY. HAD 1 LIQUID BOWEL MOVEMENT.
--- NOTE | 2020-08-01 00:37 | NUR ---
PATIENT NOT IN RESTRAINTS WHEN I TOOK REPORT.
[2020-08-01 05:14] LABS: ALBUMIN 2.2 g/dL (3.4-5.0); BILIRUBIN - TOTAL 0.34 mg/dL (0.2-1.3); CALCIUM 8.8 mg/dL (8.5-10.1); CARBON DIOXIDE 31.6 mmol/L (21.0-32.0); CREATININE - SERUM 1.8 mg/dL (0.6-1.3); PROTEIN - SERUM 6.5 g/dL (6.4-8.2)
[2020-08-01 05:15] LABS: ANION GAP 9.2 mmol/L (8-16); POTASSIUM - SERUM 3.8 mmol/L (3.5-5.1)
--- NOTE | 2020-08-01 06:24 | NUR ---
PATIENT MORE RESPONSIVE THIS AM. STILL ON BIPAP 20/01 WITH 80%. NO OTHER MAJOR CHANGES.
--- NOTE | 2020-08-01 08:30 | NUR ---
BI PAP REMOVED. PATIENT COUGHING UP THICK ELIZABETH PALE YELLOW SPUTUM. THINKS THAT HER CHILDREN ARE OUTSIDE OF ROOM.REORIENTATED TO PLACE AND TIME. PLACED ON 10 LITERS NC. ENCOURAGE TO TAKE DEEP BREATHS AND COUGH. INSTRUCTIONS ON USING YANKEUR, RETURN DEMOSTRATION DONE. HEAD OF BED ELEVATED 30 DEGREES. RIGHT UPPER ARM PICC LINE INFUSING WITH ZOSYN NS KVO. ICE WATER PROVIDED COUGHED ON FIRST DRINK.. THEN WAS ABLE TO DRINK PER STRAW WITHOUT COUGHING.
--- NOTE | 2020-08-01 12:00 | NUR ---
PATIENT VERY EMOTIONAL NENITA OVER EVERY LITTLE THING. KEEPS ASKING IF WERE GOING TO KILL HER, ASK IS SHE IS DYING. PHONE CHARGES, STATES"PLEASE LET ME TALK TO MY SON" INFORMED HER CELL PHONE IS IN HER HAND FULLY CHARGE, SHE CAN CALL ALL SHE WANTS TOO, PATIENT WANTING TO GO HOME..EXPLAINED SHEIS NOT STABLE ENOUGHT FOR HOME CARE AT THIS TIME. WILL USE INCENTIVE UNTIL HER PULSE OX IS IN 80'S%, GET UPSET BECAUSE SHE IS TOLD TO JUST BREATH. PULSE WILL COME UP TO 90'S. STILL USING
--- NOTE | 2020-08-01 17:02 | NUR ---
PATIENT HAS HAD X5 SMALL GREEN STOOLS, PERICARE DONE EACH TIME. PATIENT STILL EMOTIONAL. CRYING THEN VERY FRIENDLY. STATES SHE IS TOO HOT FOR BLANKET, THEN WANTS HER BLANKET. PATIENT STILL CONFUSED
[2020-08-02] VITALS (21 sets, daily range): BP systolic 88–171; BP diastolic 69–116
[2020-08-02 07:11] LABS: BASOPHILS 0.2 % (0-2); EOSINOPHILS 0.2 % (0-7); HEMATOCRIT 32.7 % (36.0-48.0); HEMOGLOBIN 10.3 g/dL (12-16); IMMATURE GRANULOCYTES 1.1 % (0-5); LYMPHOCYTES 11.5 % (15-50); MCH 27.7 pg (26.0-34.0); MCHC 31.5 g/dL (31.0-37.0); MCV 87.9 fL (80.0-100.0); MEAN PLATELET VOLUME 9.7 fL (7.4-10.4); MONOCYTES 7.9 % (2-11); NEUTROPHIL ABS# 9.59 10x3/uL (1.56-6.13); NEUTROPHILS 79.1 % (40-80); PLATELET COUNT 241 10x3/uL (130-400); RBC 3.72 10x6/uL (4.00-5.40); RDW 16.6 % (11.5-14.5); WBC 12.1 10x3/uL (4.8-10.8)
[2020-08-02 07:42] LABS: ALBUMIN 2.4 g/dL (3.4-5.0); ANION GAP 13.4 mmol/L (8-16); BILIRUBIN - TOTAL 0.37 mg/dL (0.2-1.3); CREATININE - SERUM 1.4 mg/dL (0.6-1.3); POTASSIUM - SERUM 3.4 mmol/L (3.5-5.1); PROTEIN - SERUM 7.2 g/dL (6.4-8.2)
--- NOTE | 2020-08-02 17:11 | NUR ---
less confusion today, less emotional today. still turning self from side to side. poor appetite. west cath patent good urine output. iv right upper arm picc. dressing dry and intact. monitor sr. po fluids taken. no problem with swallowing noted.
--- NOTE | 2020-08-02 17:53 | NUR ---
TALKED WITH ABOUT ELEVATING BLOOD PRESSURE ORDERS RECEIVED. PATIENT TAKING HCTZ AT HOME WILL RESTART IT AND APRESOLINE PRN FOR SBP GREATER THAN 160
[2020-08-03] VITALS (23 sets, daily range): BP systolic 93–162; BP diastolic 66–127
[2020-08-03 04:40] LABS: BASOPHILS 0.2 % (0-2); EOSINOPHILS 1.3 % (0-7); HEMATOCRIT 31.3 % (36.0-48.0); HEMOGLOBIN 9.9 g/dL (12-16); IMMATURE GRANULOCYTES 0.6 % (0-5); LYMPHOCYTE ABS# 1.51 10x3/uL (1.18-3.74); LYMPHOCYTES 14.1 % (15-50); MCH 27.6 pg (26.0-34.0); MCHC 31.6 g/dL (31.0-37.0); MCV 87.2 fL (80.0-100.0); MEAN PLATELET VOLUME 9.6 fL (7.4-10.4); NEUTROPHIL ABS# 8.02 10x3/uL (1.56-6.13); NEUTROPHILS 74.8 % (40-80); PLATELET COUNT 259 10x3/uL (130-400); RBC 3.59 10x6/uL (4.00-5.40); RDW 16.4 % (11.5-14.5); WBC 10.7 10x3/uL (4.8-10.8)
[2020-08-03 05:15] LABS: ALBUMIN 2.2 g/dL (3.4-5.0); ANION GAP 8.5 mmol/L (8-16); BILIRUBIN - TOTAL 0.41 mg/dL (0.2-1.3); CALCIUM 8.8 mg/dL (8.5-10.1); CARBON DIOXIDE 33.7 mmol/L (21.0-32.0); CREATININE - SERUM 1.3 mg/dL (0.6-1.3); POTASSIUM - SERUM 3.2 mmol/L (3.5-5.1); PROTEIN - SERUM 6.5 g/dL (6.4-8.2)
--- NOTE | 2020-08-03 06:51 | NUR ---
NO ACUTE EVENTS OVER NIGHT. PATIENT RESTED WELL. REMAINED ON BIPAP 18/8 AT 50% FROM [id number]. RECEIVED CHG BATH AND NAM CARE. PATIENT HAVING BLADDER SPASMS, COMPLAINS OF SLIGHT BLADDER PAIN.
--- NOTE | 2020-08-03 08:49 | EC ---
PATIENT:DARYL ANAYA DATE OF SERVICE: 07/13/20 SEX: F MEDICAL RECORD: [id number] DATE OF : 51 LOCATION:[place] [address] AGE OF PATIENT: 69 ADMISSION DATE: 07/13/20 REFERRING PHYSICIAN: INTERPRETING PHYSICIAN: MARTÍN ENGEL MD ECHOCARDIOGRAM REPORT ECHO CHARGES 4 ECHO COMPLETE Date: 07/28/20 CLINICAL DIAGNOSIS: LVH ECHOCARDIOGRAPHIC MEASUREMENTS (adult normal given) AC root (d.<3.7cm) 3.0 cm LV Septum d (<1.2 cm> 1.2 cm Valve Excursion 1.7 cm LV Septum (systole) 1.4 cm Left Atria (s.<4.0cm> 4.5 cm LVPW d(<1.2cm) 1.0 cm RV (d.<2.3cm) 4.0 cm LVPW (sytole) 1.5 cm LV diastole(<5.6CM) 5.2 cm MV E-F(>70mm/sec) cm LV systole 3.1 cm LVOT Diameter 2.0 cm MV exc.(>10mm) cm Est.ejection fraction (50-75%) % DOPPLER: LVIT cm/sec A 125 cm/sec E 110 cm/sec LA cm/sec RVSP 52 mmHg LVOT 121 cm/sec AOP1/2T m/s Asc. Ao 207 cm/sec RVOT 93 cm/sec RA cm/sec PA 107 cm/sec AV Gradient Peak 17 mmHg AV Mean 7 mmHg AV Area 2.0 cm MV Gradient Peak mmHg MV Mean mmHg MV Area cm COMMENTS: Hand Thermal Cutter: Nelson LOPEZ Brass Cutter: 3 Dr. Beauchamp TAPE# Pericardial Effusion N DATE OF SERVICE: Adequate 2D echo, color flow imaging, spectral Doppler and M-Mode FINDINGS: No LVH. LV internal dimension is normal. Wall motion is normal. EF is greater than or equal to 55%. Aortic valve is tricuspid. No evidence of stenosis by Doppler interrogation. Left atrium is dilated at 4.5 cm. Mitral valve shows no prolapse. Trace MR. Right side is grossly normal. Trace TR. TRANSINT:[id number] Voice Confirmation ID: [id number] DOCUMENT ID: [id number] ECHOCARDIOGRAM REPORT [id number] DARYL ANAYA MARTÍN ENGEL MD at 0849 CC: [id number] DICTATION DATE: 07/29/20 0843 FE[employer] [place]ILL LAB TECHNICIAN: 07/29/20 1105 ADM IN [place] [id number] [facility] [place] [address]
--- NOTE | 2020-08-03 09:15 | NUR ---
DR. ALONZO HERE FOR ROUNDS. ORDER RECEIVED.
--- NOTE | 2020-08-03 11:09 | NUR ---
PT STOOD AT SIDE OF BED W/ PT. REPORTS DIZZINESS AND SOB.
--- NOTE | 2020-08-03 12:52 | NUR ---
Nutrition follow-up: Discussed during IDT team rounds RDN visited with pt during breakfast; pt only ate ~25% of meal and reports appetite poor at this time due to breathing issues Wt: 239# Labs reviewed RDN order Glucerna Shake with meals Follow-up: 08/05/20
--- NOTE | 2020-08-03 14:08 | NUR ---
PRN HYDRALAZINE GIVEN FOR HIGH BP.
[2020-08-04] VITALS (23 sets, daily range): BP systolic 102–153; BP diastolic 73–99
[2020-08-04 04:34] LABS: BASOPHILS 0.2 % (0-2); EOSINOPHILS 1.4 % (0-7); HEMOGLOBIN 9.6 g/dL (12-16); IMMATURE GRANULOCYTES 0.6 % (0-5); LYMPHOCYTE ABS# 1.64 10x3/uL (1.18-3.74); LYMPHOCYTES 16.3 % (15-50); MCH 27.9 pg (26.0-34.0); MCV 87.2 fL (80.0-100.0); MEAN PLATELET VOLUME 9.4 fL (7.4-10.4); MONOCYTES 9.5 % (2-11); NEUTROPHIL ABS# 7.27 10x3/uL (1.56-6.13); PLATELET COUNT 264 10x3/uL (130-400); RBC 3.44 10x6/uL (4.00-5.40); RDW 16.8 % (11.5-14.5); WBC 10.1 10x3/uL (4.8-10.8)
[2020-08-04 04:55] LABS: ALBUMIN 2.1 g/dL (3.4-5.0); BILIRUBIN - TOTAL 0.42 mg/dL (0.2-1.3); CALCIUM 8.4 mg/dL (8.5-10.1); CARBON DIOXIDE 35.2 mmol/L (21.0-32.0); CREATININE - SERUM 1.3 mg/dL (0.6-1.3); MAGNESIUM - SERUM 1.8 mg/dL (1.8-2.4); PHOSPHOROUS 2.4 mg/dL (2.5-4.9); PROTEIN - SERUM 6.1 g/dL (6.4-8.2)
[2020-08-04 04:57] LABS: ANION GAP 7.8 mmol/L (8-16)
--- NOTE | 2020-08-04 07:00 | NUR ---
HAS 1 SOFT BROWN STOOL.
--- NOTE | 2020-08-04 07:44 | NUR ---
BILATERAL DECUBITUS CHEST XRAYS WERE ORDERED. TECHNOLOGISTS ATTEMPTED TO DO THE EXAM BUT PATIENT COULD NOT TOLERATE LAYING ON EITHER SIDE DUE TO LEFT SIDE PAIN AND OPEN WOUND ON LEFT ANKLE. RN WAS INFORMED AND ATTEMPTED TO HELP WITH EXAM BUT PATIENT WAS STILL UNABLE TO TOLERATE POSITIONING FOR DECUBITUS CHEST XRAYS BILATERALLY.
--- NOTE | 2020-08-04 09:16 | NUR ---
PICC DRSG CHANGED PER PROTOCOL USING STERILE TECHNIQUE. TOLERATED WELL. NAM REMOVED. TOLERATED WELL.
--- NOTE | 2020-08-04 09:38 | NUR ---
DR. ALONZO HERE FOR ROUNDS. ORDERS RECEIVED.
--- NOTE | 2020-08-04 14:11 | NUR ---
WORKED W/ PT. SAT AT SIDE OF BED FOR SEVERAL MINUTES. UNABLE TO STAND S/T WEAKNESS. BACK TO BED W/ MOD ASSIST PER PT.
--- NOTE | 2020-08-04 15:37 | NUR ---
OT NOTE: PT ON HOLD PER NURSING DUE TO INCREASED SOB DIAMOND TOVAR, OTR/L
--- NOTE | 2020-08-04 22:45 | NUR ---
CHG BATH GIVEN AND COMPLETE LINEN CHANGE PROVIDED. PT BRUSHED TEETH AND LIP MOISTURIZER APPLIED. PT ON BIPAP 18/8 50% FOR TURNING, TOLERATED WELL. PT CONTINUES TO REST COMFORTABLY IN BED. NO COMPLAINTS AT THIS TIME.
[2020-08-05] VITALS (24 sets, daily range): BP systolic 93–137; BP diastolic 61–96
[2020-08-05 03:52] LABS: BASOPHILS 0.2 % (0-2); HEMOGLOBIN 9.6 g/dL (12-16); IMMATURE GRANULOCYTES 0.7 % (0-5); LYMPHOCYTE ABS# 2.06 10x3/uL (1.18-3.74); LYMPHOCYTES 22.3 % (15-50); MCV 87.3 fL (80.0-100.0); MEAN PLATELET VOLUME 9.7 fL (7.4-10.4); MONOCYTES 8.8 % (2-11); NEUTROPHIL ABS# 5.99 10x3/uL (1.56-6.13); PLATELET COUNT 274 10x3/uL (130-400); RBC 3.55 10x6/uL (4.00-5.40); RDW 16.8 % (11.5-14.5); WBC 9.2 10x3/uL (4.8-10.8)
[2020-08-05 04:27] LABS: ALBUMIN 2.2 g/dL (3.4-5.0); BILIRUBIN - TOTAL 0.34 mg/dL (0.2-1.3); CARBON DIOXIDE 34.4 mmol/L (21.0-32.0); CREATININE - SERUM 1.4 mg/dL (0.6-1.3); MAGNESIUM - SERUM 1.9 mg/dL (1.8-2.4); POTASSIUM - SERUM 3.4 mmol/L (3.5-5.1); PROTEIN - SERUM 6.4 g/dL (6.4-8.2)
--- NOTE | 2020-08-05 05:30 | NUR ---
CENTRAL LINE DRESSING COMPLETED WITH STERILE TECHNIQUIE.
--- NOTE | 2020-08-05 13:12 | NUR ---
Nutrition reassessment: Diet order: consistent CHO PO intake remains poor; ~10% of meals ProcalAmine PPN started @ 75 ml/hr Labs reviewed Wt: 240# Reassment remains the same from 07/28/20 RDN will follow-up: 07/28/20
--- NOTE | 2020-08-05 14:58 | NUR ---
REHAB PRESCREENING Rehab referral received and chart reviewed. PT and OT held today due to shortness of breath and continued use of BIPAP. Patient has [facility] and insurance provider which requires a prior authorization for acute inpatient rehab. We will begin auth but will continue to follow for improved clinical notes to submit to [facility]. Thank you for this referral! Shannan Baltazar, AUTO BODY SERVICE MECHANIC Rehab PD
--- NOTE | 2020-08-05 16:40 | NUR ---
OT NOTE: PT DOING BETTER TODAY. CURRENTLY USING NASAL CANULA. BED MOB WITH MIN/MOD ASSIST FOR SUPINE TO SIT; MOD ASSIST WITH TRANSFER TO COMMODE; MAX ASSIST WITH TOILET HYGIENE; ATTEMPTED TO BRUSH HAIR BUT IT WAS TOO TANGLED. ABLE TO WASH FACE AND HANDS WITH CLOTH AND SET UP; TRANSFER BACK TO BED WITH MOD/MAX ASSIST; MIN ASSIST FOR SIT TO SUPINE. DIAMOND TOVAR, OTR/L 1140-12
--- NOTE | 2020-08-05 17:31 | NUR ---
CONSENT SIGNED BY PATIENT AND PATIENT UPDATED ON POC AND PROCEDURE PLANNED FOR ILIA.
[2020-08-06] VITALS (24 sets, daily range): BP systolic 102–146; BP diastolic 69–99
[2020-08-06 04:36] LABS: BASOPHILS 0.3 % (0-2); HEMATOCRIT 30.7 % (36.0-48.0); HEMOGLOBIN 9.5 g/dL (12-16); IMMATURE GRANULOCYTES 0.5 % (0-5); LYMPHOCYTE ABS# 2.13 10x3/uL (1.18-3.74); LYMPHOCYTES 23.1 % (15-50); MCH 26.9 pg (26.0-34.0); MCHC 30.9 g/dL (31.0-37.0); MEAN PLATELET VOLUME 9.2 fL (7.4-10.4); MONOCYTES 7.9 % (2-11); NEUTROPHIL ABS# 5.92 10x3/uL (1.56-6.13); NEUTROPHILS 64.2 % (40-80); PLATELET COUNT 268 10x3/uL (130-400); RBC 3.53 10x6/uL (4.00-5.40); RDW 16.7 % (11.5-14.5); WBC 9.2 10x3/uL (4.8-10.8)
[2020-08-06 05:06] LABS: ALBUMIN 2.2 g/dL (3.4-5.0); ANION GAP 4.2 mmol/L (8-16); BILIRUBIN - TOTAL 0.29 mg/dL (0.2-1.3); CARBON DIOXIDE 34.4 mmol/L (21.0-32.0); CREATININE - SERUM 1.4 mg/dL (0.6-1.3); MAGNESIUM - SERUM 2.1 mg/dL (1.8-2.4); POTASSIUM - SERUM 3.6 mmol/L (3.5-5.1); PROTEIN - SERUM 6.3 g/dL (6.4-8.2)
--- NOTE | 2020-08-06 07:00 | NUR ---
REC'D REPORT AND RESUMED CARE% FIO2, AAO, BIPAP IN USE AT 50%, SAT 92%,20/01, RIGHT UPPER ARM PIC WITH PROCAL AND NS INFUSING, PLACED ON BEDPAN, 250 CC URINE TO CADE, ASSESSMENT COMPLETED PER FLOWSHEET, LISA AREA ESCORIATED, SKIN CARE GIVEN AND BUTT PASTE APPLIED, REDNESS AND SCABS TO BUTTOCK, LEFT LEG WITH BOOT TO LOWER EXTREMETY, REPOSITIONED UP AND TO BACK, CALL LIGHT IN REACH
--- NOTE | 2020-08-06 07:15 | NUR ---
CHG BATH GIVEN
--- NOTE | 2020-08-06 15:50 | NUR ---
16FR NAM CATH PLACED PER MD ORDER
--- NOTE | 2020-08-06 16:30 | NUR ---
OT NOTE: PT PERFORMED WELL WITH BED MOB INCLUDING ROLLING SIDE TO SIDE TO PLACE BED CADE. PT ONLY REQUIRING MIN ASSIST; MIN ASSIST FOR SUPINE TO SIT; MAX ASSIST WITH TOILET HYGIENE.. PT DID NOT WANT TO GET TO BS COMMODE TODAY. SIMPLE GROOMING INCLUDING FACE AND HAND WASHING WITH WASHCLOTH WITH SET UP.. DIAMOND TOVAR, OTR/L [id number]
--- NOTE | 2020-08-06 19:00 | NUR ---
Report received, care assumed. PT is laying in bed watching TV at this time. No needs voiced at this time. No s/s of distress noted. Will continue to monitor.
[2020-08-07] VITALS (14 sets, daily range): BP systolic 108–178; BP diastolic 66–130
[2020-08-07 04:40] LABS: BASOPHILS 0.2 % (0-2); EOSINOPHILS 4.5 % (0-7); HEMATOCRIT 32.4 % (36.0-48.0); HEMOGLOBIN 10.4 g/dL (12-16); IMMATURE GRANULOCYTES 0.7 % (0-5); LYMPHOCYTE ABS# 2.35 10x3/uL (1.18-3.74); LYMPHOCYTES 24.6 % (15-50); MCH 27.4 pg (26.0-34.0); MCHC 32.1 g/dL (31.0-37.0); MCV 85.3 fL (80.0-100.0); MEAN PLATELET VOLUME 9.3 fL (7.4-10.4); MONOCYTES 8.8 % (2-11); NEUTROPHIL ABS# 5.86 10x3/uL (1.56-6.13); NEUTROPHILS 61.2 % (40-80); PLATELET COUNT 298 10x3/uL (130-400); RDW 16.5 % (11.5-14.5); WBC 9.6 10x3/uL (4.8-10.8)
[2020-08-07 05:02] LABS: ALBUMIN 2.3 g/dL (3.4-5.0); ANION GAP 8.4 mmol/L (8-16); BILIRUBIN - TOTAL 0.42 mg/dL (0.2-1.3); CALCIUM 9.1 mg/dL (8.5-10.1); CARBON DIOXIDE 30.9 mmol/L (21.0-32.0); CREATININE - SERUM 1.4 mg/dL (0.6-1.3); MAGNESIUM - SERUM 1.9 mg/dL (1.8-2.4); POTASSIUM - SERUM 3.3 mmol/L (3.5-5.1); PROTEIN - SERUM 6.6 g/dL (6.4-8.2)
--- NOTE | 2020-08-07 11:10 | NUR ---
Nutrition Follow-up: NPO for I&D, wound vac change, graft placement. Receiving Procal @ 75 mL/hr; provides 441 kcal & 54 g protein daily. Ate 100% of dinner last night. Discussed in IDT. May d/c Procal after it runs out if PO intake remains good following surgery. ST following. Wt: 239.2# (08/07); 239.2# (08/03); 242.5# (07/31); 240# (07/30) Labs noted: Na 139, K+ 3.3, Glu 157, Ca 9.1, Mg 1.9, Alb 2.3 Meds noted: Lasix, HCTZ, KDur, Nystatin, Florajen, Humulin, Protonix, Miralax, Colace, electrolyte protocol -Resume diet when medically feasible; rec d/c Procal if PO intake remains good following surgery. - follow-up: 08/10
--- NOTE | 2020-08-07 11:51 | NUR ---
OT NOTE: PT INITIALLLY REPORTING THAT SHE WAS VERY HOT AND NOT FEELING WELL. REMOVED BLANKETS. PT AGREEABLE TO SIT UP ON EOB AND WANTED TO GET UP IN CHAIR; SUPINE TO SIT WITH MOD ASSIST; ABLE TO SIT UP ON SIDE OF BED FOR APPROX 10 MIN ..BATHED PTS BACK AND SHE WAS ABLE TO WASH FACE AND HANDS WITH CLOTH. PT REQUIRED MOD ASSIST X 2 FOR TRANSFER FROM BED TO CHAIR AND EQUIP MGMT. PT VERY HAPPY TO BE SITTING UP. [id number]
[2020-08-08] VITALS (10 sets, daily range): BP systolic 96–148; BP diastolic 63–86
[2020-08-08 04:16] LABS: BASOPHILS 0.2 % (0-2); EOSINOPHILS 4.5 % (0-7); HEMATOCRIT 34.2 % (36.0-48.0); HEMOGLOBIN 10.8 g/dL (12-16); IMMATURE GRANULOCYTES 0.5 % (0-5); LYMPHOCYTE ABS# 2.04 10x3/uL (1.18-3.74); LYMPHOCYTES 21.9 % (15-50); MCH 26.9 pg (26.0-34.0); MCHC 31.6 g/dL (31.0-37.0); MCV 85.3 fL (80.0-100.0); MEAN PLATELET VOLUME 9.6 fL (7.4-10.4); MONOCYTES 7.5 % (2-11); NEUTROPHIL ABS# 6.09 10x3/uL (1.56-6.13); NEUTROPHILS 65.4 % (40-80); PLATELET COUNT 334 10x3/uL (130-400); RBC 4.01 10x6/uL (4.00-5.40); RDW 16.4 % (11.5-14.5); WBC 9.3 10x3/uL (4.8-10.8)
[2020-08-08 04:28] LABS: ANION GAP 10.9 mmol/L (8-16); CALCIUM 9.1 mg/dL (8.5-10.1); CARBON DIOXIDE 30.5 mmol/L (21.0-32.0); CREATININE - SERUM 1.4 mg/dL (0.6-1.3); MAGNESIUM - SERUM 1.9 mg/dL (1.8-2.4); PHOSPHOROUS 3.6 mg/dL (2.5-4.9); POTASSIUM - SERUM 3.4 mmol/L (3.5-5.1)
--- NOTE | 2020-08-08 06:47 | NUR ---
BP MACHINE MALFUNCTIONED AND BP WERE NOT AVAILABLE PART OF THE SHIFT.
--- NOTE | 2020-08-08 11:47 | NUR ---
PT WHEELCHAIR FOUND BY RN IN STORAGE ROOM OF ICU. RETURNED TO PT AND LABELED WITH PT NAME
--- NOTE | 2020-08-08 12:15 | NUR ---
REPORT CALLED TO MED FLOOR RN. VSS NO SCUTE DISTRESS NOTED. PT IN WHEELCHAIR WITH BELONGINGS. [facility] TO TRANSPORT PT
--- NOTE | 2020-08-08 13:31 | NUR ---
VS STABLE. PT ALERT AND ORIENTED. REQUESTS AND WILL RECEIVE A BSC AND MORE PILLOWS.
--- NOTE | 2020-08-08 16:13 | NUR ---
PT ASSISTED BACK TO BED. NO FURTHER NEEDS AT THIS TIME. WCTM
--- NOTE | 2020-08-08 19:05 | NUR ---
RECEIVED REPORT, ASSUMED CARE, BREATHING EVEN UNLABORED, CALL LIGHT IN REACH, BED LOWEST POSITION, DENIES NEEDS, NO S/S OF DISTRESS NOTED, ENCOURAGED PT TO NOTIFY STAFF OF ANY NEEDS, HELPED TO BEDSIDE COMMODE AND BACK TO BED, REPOSITINED, NAM TO GRAVITY, WOUND VAC ON WITH NO LEAKS
--- NOTE | 2020-08-09 03:00 | NUR ---
I have reviewed this patient and I concur with the Shift Assessment completed by the Licensed Practical Nurse today this shift.
[2020-08-09 07:17] LABS: ALBUMIN 2.6 g/dL (3.4-5.0); ANION GAP 9.7 mmol/L (8-16); BILIRUBIN - TOTAL 0.38 mg/dL (0.2-1.3); CALCIUM 8.8 mg/dL (8.5-10.1); CARBON DIOXIDE 29.1 mmol/L (21.0-32.0); CREATININE - SERUM 1.2 mg/dL (0.6-1.3); POTASSIUM - SERUM 3.8 mmol/L (3.5-5.1)
[2020-08-09 07:33] LABS: BASOPHILS 0.3 % (0-2); EOSINOPHILS 4.3 % (0-7); HEMATOCRIT 33.7 % (36.0-48.0); HEMOGLOBIN 10.8 g/dL (12-16); IMMATURE GRANULOCYTES 0.8 % (0-5); LYMPHOCYTE ABS# 2.79 10x3/uL (1.18-3.74); LYMPHOCYTES 28.2 % (15-50); MCH 27.7 pg (26.0-34.0); MCV 86.4 fL (80.0-100.0); MEAN PLATELET VOLUME 10.3 fL (7.4-10.4); MONOCYTES 8.5 % (2-11); NEUTROPHIL ABS# 5.73 10x3/uL (1.56-6.13); NEUTROPHILS 57.9 % (40-80); PLATELET COUNT 327 10x3/uL (130-400); RDW 16.7 % (11.5-14.5); WBC 9.9 10x3/uL (4.8-10.8)
[2020-08-09 07:48] VITALS: BP 105/56
[2020-08-09 11:32] VITALS: BP 120/103
[2020-08-09 16:49] VITALS: BP 128/60
[2020-08-09 23:02] VITALS: BP 122/67
--- NOTE | 2020-08-10 01:33 | NUR ---
I have reviewed this patient and I concur with the Shift Assessment completed by the Licensed Practical Nurse today this shift.
[2020-08-10 05:02] VITALS: BP 114/51
--- NOTE | 2020-08-10 08:00 | NUR ---
ASSESSMENT PER FLOW SHEET. PATIENT IS WITHOUT DISTRESS.MONITOR FOR NEEDS
[2020-08-10 08:02] LABS: ALBUMIN 2.7 g/dL (3.4-5.0); ANION GAP 10.2 mmol/L (8-16); BILIRUBIN - TOTAL 0.3 mg/dL (0.2-1.3); CALCIUM 9.1 mg/dL (8.5-10.1); CREATININE - SERUM 1.4 mg/dL (0.6-1.3); POTASSIUM - SERUM 4.2 mmol/L (3.5-5.1); PROTEIN - SERUM 6.3 g/dL (6.4-8.2)
[2020-08-10 08:24] LABS: BASOPHILS 0.1 % (0-2); HEMATOCRIT 34.5 % (36.0-48.0); HEMOGLOBIN 10.9 g/dL (12-16); IMMATURE GRANULOCYTES 0.6 % (0-5); LYMPHOCYTE ABS# 3.09 10x3/uL (1.18-3.74); LYMPHOCYTES 29.6 % (15-50); MCH 27.6 pg (26.0-34.0); MCHC 31.6 g/dL (31.0-37.0); MCV 87.3 fL (80.0-100.0); MEAN PLATELET VOLUME 9.5 fL (7.4-10.4); MONOCYTES 7.9 % (2-11); NEUTROPHIL ABS# 5.93 10x3/uL (1.56-6.13); NEUTROPHILS 56.8 % (40-80); PLATELET COUNT 307 10x3/uL (130-400); RBC 3.95 10x6/uL (4.00-5.40); RDW 16.4 % (11.5-14.5); WBC 10.4 10x3/uL (4.8-10.8)
[2020-08-10 08:35] VITALS: BP 98/62
[2020-08-10 11:27] VITALS: BP 112/61
--- NOTE | 2020-08-10 13:14 | NUR ---
Nutrition reassessment: Pt just out of ICU Diet order: consistent CHO with po intake ~50% of meals Pt continues with wound VAC for ankle wound Labs reviewed Ht: 5'5" Wt: 229# IBW: 125# +/-10% BMI: 38.1 Nutrition diagnosis: Inadequate oral intake R/T IV ABX due to infection AEB po intake continues to be < 75% of meals, snacks. Goals: - PO intake will increase to =/> 75% of meals, snacks - meet at leasts 75% of estimated fluid needs - stable dry wt +/-5# - Glucose maintained at or near normal range Interventions: -Continue to provide food choices with selective menus and honor food preferences -Offer Glucerna Shake nutritional supplement with meals Recommendations: - Trial of an Appetite stimulant RDN follow-up: 08/13/20
--- NOTE | 2020-08-10 15:48 | NUR ---
SITING UP IN CHAIR MOST OF DAY. SHE IS WITHOUT DISTRESS. MONITOR FOR NEEDS
--- NOTE | 2020-08-10 16:10 | NUR ---
OT NOTE: PT COMPLETED BED MOB WITH MIN-MOD A. PT COMPLETED SIT TO STAND WITH MIN A. PT COMPLETED FACE HYGIENE WITH SETUP. PT REQUIRED TOTAL A WITH HAIR GROOMING IT IS VERY KNOTTED. 1225-1 THANK YOU,ALESHIA KIRKLAND
--- NOTE | 2020-08-10 16:14 | NUR ---
REHAB PRESCREENING REHAB CONTINUES TO FOLLOW THIS PATIENT. IF PATIENT IS AGREEABLE TO COME TO REHAB I WILL BEGIN [facility] PRIOR AUTHORIZATION. THANK YOU FOR THIS REFERRAL! HORACIO BAER, SHEETER MACHINE OPERATOR REHAB PD
[2020-08-10 17:19] VITALS: BP 81/55
--- NOTE | 2020-08-10 21:26 | OP ---
PATIENT NAME: DARYL LOVETT MEDICAL RECORD: [id number] :52 LOCATION:D.MS [id number] ADMISSION DATE:07/13/20 SURGEON: TAMEKA ALEMAN MD DATE OF OPERATION: 08/07/2020 PREOPERATIVE DIAGNOSES: 1. Open wound left ankle, status post incision and drainage with VAC placement. 2. Left ankle infection. POSTOPERATIVE DIAGNOSES: 1. Open wound left ankle, status post incision and drainage with VAC placement. 2. Left ankle infection. PROCEDURE: 1. Irrigation and debridement of left ankle (skin, subcutaneous tissue, bone). 2. Application of Kerecis tissue graft. 3. Application of wound VAC, left ankle (less than 50 cm-squared). INDICATIONS FOR THE PROCEDURE: Ms. Lovett is a 69-year-old female with history of open wound, left ankle. We are attempting to salvage her extremity and have been performing debridements to the ankle and placed a Kerecis tissue graft at her last procedure. We have been monitoring this, keeping it covered with the wound VAC and there is granulation tissue that is beginning to fill in from the edges of the wound. The tibia remains exposed centrally. She returns today for repeat I&D with graft placement and wound VAC. Risks, benefits and alternatives of the procedure were discussed with the patient and consent was obtained. DESCRIPTION OF PROCEDURE: The patient was met in the holding area where her identity and confirmation of procedure was performed. Left lower extremity was marked. She was taken to the operating room where she was placed supine on the operating table. Anesthesia was administered. Tourniquet was applied to the left thigh, but was not used. Left lower extremity was prepped and draped in a sterile fashion. The patient was on scheduled antibiotics; therefore, did not receive any immediately preop. A timeout was performed prior to initiating the case. On initiation of the case, the wound was explored. There was good granulation tissue around the edges and open tibia visible centrally. There was also a flap of tissue at the inferior edge of the wound that was mobile with ankle movement. Thorough I&D was performed. There did not appear to be much necrotic tissue, but the areas were freshened and gently debrided with a scalpel and scissors. The flap of tissue inferiorly was reapproximated with 2-0 PDS. I was able to place the needle directly through the bone, which indicated how soft the bone is currently and then securely tightened that tissue down at the inferior border of the wound. Wound measured 7 x 4 cm. The Kerecis graft was then meshed and trimmed and laid into the wound. Two layers of the graft were placed. The top layer was sutured in with Monocryl suture. This was covered with Adaptic and a wound VAC was then applied. Wound VAC was noted to have good compression. This was covered with the dressing and the patient was placed back into her boot. She was turned back over to anesthesia where she was awakened and taken back to the ICU in stable condition. POSTOPERATIVE PLAN: The patient is going to continue with medical care. We plan for 6 weeks of IV vancomycin from its initiation date. We are going to continue with wound VAC to the left ankle and plan for VAC change next Monday. OPERATIVE REPORT [id number] DARYL LOVETT ANESTHESIA: Sedation with peripheral block. COMPLICATIONS: None. ESTIMATED BLOOD LOSS: 5 mL. TRANSINT:[id number] Voice Confirmation ID: [id number] DOCUMENT ID: [id number] TAMEKA ALEMAN MD at 2126 CC: [id number] DICTATION DATE: 08/07/20 1511 DRY PASTE SUPERVISOR: 08/07/20 2043 ADM IN [facility] [address] [place] [address]
[2020-08-11 04:44] VITALS: BP 146/66
[2020-08-11 05:13] LABS: ALBUMIN 2.5 g/dL (3.4-5.0); ANION GAP 10.7 mmol/L (8-16); BILIRUBIN - TOTAL 0.25 mg/dL (0.2-1.3); CALCIUM 8.4 mg/dL (8.5-10.1); CARBON DIOXIDE 31.1 mmol/L (21.0-32.0); CREATININE - SERUM 1.4 mg/dL (0.6-1.3); POTASSIUM - SERUM 3.8 mmol/L (3.5-5.1); PROTEIN - SERUM 6.6 g/dL (6.4-8.2)
[2020-08-11 05:25] LABS: BASOPHILS 0.4 % (0-2); EOSINOPHILS 5.7 % (0-7); HEMATOCRIT 31.7 % (36.0-48.0); IMMATURE GRANULOCYTES 0.4 % (0-5); LYMPHOCYTE ABS# 2.81 10x3/uL (1.18-3.74); LYMPHOCYTES 26.1 % (15-50); MCH 27.4 pg (26.0-34.0); MCHC 31.5 g/dL (31.0-37.0); MCV 86.8 fL (80.0-100.0); MEAN PLATELET VOLUME 9.6 fL (7.4-10.4); MONOCYTES 9.2 % (2-11); NEUTROPHIL ABS# 6.27 10x3/uL (1.56-6.13); NEUTROPHILS 58.2 % (40-80); PLATELET COUNT 298 10x3/uL (130-400); RBC 3.65 10x6/uL (4.00-5.40); RDW 16.3 % (11.5-14.5); WBC 10.8 10x3/uL (4.8-10.8)
--- NOTE | 2020-08-11 07:07 | NUR ---
Patient had complained of a headache that was managed with tylenol, she appeared to rest well through the night.
--- NOTE | 2020-08-11 08:00 | NUR ---
ASSESSMENT PER FLOW SHEET. PATIENT WITHOUT DISTRESS.MONITOR
[2020-08-11 09:07] VITALS: BP 111/69
[2020-08-11 12:59] VITALS: BP 96/69
--- NOTE | 2020-08-11 15:05 | NUR ---
OT NOTE: PT UP IN CHAIR..REPORTS THAT SHE WOULD LIKE TO REMAIN UP IN CHAIR BUT NEEDS SOMETHING FOR HER HEADACHE. NURSING NOTIFIED. PT ABLE TO PERFORM ALL SIMPLE GROOMING TASKS WHILE UP IN CHAIR. ABLE TO PERFORM UE AROM EXS; .. PT REMAINS WEAK AND WOULD BENEFIT FROM IP REHAB PRIOR TO DC HOME. PT UNABLE TO FULLY CARE FOR HERSELF AT THIS TIME. DIAMOND TOVAR, OTR/L 145-2
--- NOTE | 2020-08-11 16:42 | NUR ---
OT NOTE: PT COMPLETED BED MOB WITH MIN A. PT COMPLETED HAIR GROOMING WITH SETUP. PT COMPLETED ORAL HYGIENE WITH SETUP. [phone] THANK YOU,ALESHIA DANIEL
[2020-08-11 17:18] VITALS: BP 93/64
--- NOTE | 2020-08-11 19:28 | NUR ---
PATIENT WITHOUT CHANGE. SAT UP IN CHAIR TODAY. CONT PLAN OF CARE
[2020-08-11 20:06] VITALS: BP 130/57
[2020-08-12 00:27] VITALS: BP 128/62
--- NOTE | 2020-08-12 02:34 | NUR ---
Patient had her headache managed with Tylenol, no further complaints of pain. She refused her SCD's she said she cannot go to sleep with them on, she said she would wear them in the morning. She is currently resting in bed with his eyes closed.
[2020-08-12 04:00] VITALS: BP 130/72
[2020-08-12 06:17] LABS: BASOPHILS 0.3 % (0-2); EOSINOPHILS 6.2 % (0-7); HEMOGLOBIN 10.2 g/dL (12-16); IMMATURE GRANULOCYTES 0.3 % (0-5); LYMPHOCYTE ABS# 2.37 10x3/uL (1.18-3.74); LYMPHOCYTES 26.9 % (15-50); MCH 27.1 pg (26.0-34.0); MCHC 30.9 g/dL (31.0-37.0); MCV 87.8 fL (80.0-100.0); MEAN PLATELET VOLUME 9.4 fL (7.4-10.4); MONOCYTES 7.9 % (2-11); NEUTROPHIL ABS# 5.14 10x3/uL (1.56-6.13); NEUTROPHILS 58.4 % (40-80); PLATELET COUNT 301 10x3/uL (130-400); RBC 3.76 10x6/uL (4.00-5.40); RDW 16.1 % (11.5-14.5); WBC 8.8 10x3/uL (4.8-10.8)
[2020-08-12 06:48] LABS: ALBUMIN 2.7 g/dL (3.4-5.0); ANION GAP 7.6 mmol/L (8-16); BILIRUBIN - TOTAL 0.29 mg/dL (0.2-1.3); CARBON DIOXIDE 33.3 mmol/L (21.0-32.0); CREATININE - SERUM 1.4 mg/dL (0.6-1.3); POTASSIUM - SERUM 3.9 mmol/L (3.5-5.1); PROTEIN - SERUM 6.3 g/dL (6.4-8.2)
[2020-08-12 07:56] VITALS: BP 154/72
[2020-08-12 11:39] VITALS: BP 127/55
--- NOTE | 2020-08-12 14:45 | NUR ---
PATIENT RIGHT PICC LINE CHANGED USING STERILE TECHNIQUE PER PROTOCAL. HUB CHANGED WELL. ORANGE CAPS APPLIED. PATIENT TOLERATED WITH SMALL AMOUNT OF PAIN. CALL LIGHT WITHIN REACH.
--- NOTE | 2020-08-12 16:33 | NUR ---
OT NOTE: PT COMPLETED SUPINE TO SIT WITH MIN A FOR LLE MANAGEMENT. PT COMPLETED SITTING AT EOB WITH SPV. PT COMPLETED SIT TO STAND WITH MIN A. PT COMPLETED FACE HYGIENE WITH SETUP. [phone] THANK YOU,ALESHIA KIRKLAND
[2020-08-12 17:13] VITALS: BP 98/65
--- NOTE | 2020-08-12 18:30 | NUR ---
PATIENT BACK TO BED WITH NO COMPLAINTS OR SIGNS OF DISTRESS. VANC IV INFUSING. CALL LIGHT WITHIN REACH.
[2020-08-12 20:18] VITALS: BP 129/83; BP 95/57
[2020-08-13 00:29] VITALS: BP 108/62
[2020-08-13 04:00] VITALS: BP 110/67
--- NOTE | 2020-08-13 05:20 | NUR ---
Patient complained of a headache that was managed with the prescribed tylenol, she appeared to rest well through the night.
[2020-08-13 07:06] LABS: BASOPHILS 0.2 % (0-2); EOSINOPHILS 5.6 % (0-7); HEMATOCRIT 32.1 % (36.0-48.0); HEMOGLOBIN 10.1 g/dL (12-16); IMMATURE GRANULOCYTES 0.3 % (0-5); LYMPHOCYTE ABS# 2.37 10x3/uL (1.18-3.74); LYMPHOCYTES 26.5 % (15-50); MCH 27.4 pg (26.0-34.0); MCHC 31.5 g/dL (31.0-37.0); MEAN PLATELET VOLUME 9.4 fL (7.4-10.4); MONOCYTES 7.9 % (2-11); NEUTROPHIL ABS# 5.33 10x3/uL (1.56-6.13); NEUTROPHILS 59.5 % (40-80); PLATELET COUNT 298 10x3/uL (130-400); RBC 3.69 10x6/uL (4.00-5.40); RDW 15.9 % (11.5-14.5)
[2020-08-13 07:24] LABS: ALBUMIN 2.6 g/dL (3.4-5.0); BILIRUBIN - TOTAL 0.26 mg/dL (0.2-1.3); CARBON DIOXIDE 34.3 mmol/L (21.0-32.0); CREATININE - SERUM 1.3 mg/dL (0.6-1.3); POTASSIUM - SERUM 4.3 mmol/L (3.5-5.1); PROTEIN - SERUM 6.1 g/dL (6.4-8.2)
[2020-08-13 08:31] VITALS: BP 129/75; BP 135/52
--- NOTE | 2020-08-13 12:06 | MORECARE ---
CASE MANAGEMENT DISCHARGE SUMMARY PATIENT: DARYL ANAYA UNIT: [id number] ADM DATE: 07/13/20 AGE: 69 : 51 SEX: F ROOM/BED: D.2215 AUTHOR: RICODOC PHYSICIAN: REFERRING PHYSICIAN: TAMEKA ALEMAN MD DATE OF SERVICE: 08/13/20 Discharge Plan Patient Name: DARYL ANAYA Facility: [facility]:[place] : 1950 Planned Disposition: Anticipated Discharge Date: Discharge Date: Expected LOS: Initial Reviewer: [id number] Initial Review Date: 07/14/2020 Generated: 08/13/20 1:05 pm Comments DCP- Discharge Planning Updated by [email or web address]: Edna Jordan on 07/29/20 12:[address] Patient Name: DARYL ANAYA Admission Status: Elective Accout number: [id number] Admission Date: 07-13-2020 : 1950 Admission Diagnosis:UNSPECIFIED OPEN WOUND, LEFT ANKLE, INITIAL ENCOUNTER Attending: YOKO Current LOS: 16 Anticipated DC Date: Planned Disposition: Primary Insurance: NOVASYSMCR Discharge Planning Comments: IV MED ORDER FAXED TO [facility]. I HAVE LET THEM KNOW PATIENT IS NOT READY FOR DISCHARGE YET. I WILL PLACE IV ORDER SHEET ON PATIENT CHART. Needle Polisher: Edna Jordan DCP- Discharge Planning Updated by [email or web address]: Edna Jordan on 07/23/20 12:[address] Patient Name: DARYL ANAYA Admission Status: Elective Accout number: [id number] Admission Date: 07-13-2020 : 1950 Admission Diagnosis:UNSPECIFIED OPEN WOUND, LEFT ANKLE, INITIAL ENCOUNTER Attending: YOKO Current LOS: 10 Anticipated DC Date: Planned Disposition: Primary Insurance: NOVASYSMCR Discharge Planning Comments: ATTEMPTED TO CONTACT PATIENT FOR FURTHER DC PLANNING. NO ANSWER IN HER ROOM. I SPOKE WITH THE NURSE AND SHE SAID SHE IS SLEEPING, SHE WAS AWAKE MOST OF THE NIGHT. I WILL TRY CALLING HER BACK LATER TODAY. Needle Polisher: Edna Jordan DCP- Discharge Planning Updated by [email or web address]: Edna Jordan on 07/23/20 9:[address] Patient Name: DARYL ANAYA Admission Status: Elective Accout number: [id number] Admission Date: 07-13-2020 : 1950 Admission Diagnosis:UNSPECIFIED OPEN WOUND, LEFT ANKLE, INITIAL ENCOUNTER Attending: YOKO Current LOS: 10 Anticipated DC Date: Planned Disposition: Primary Insurance: [facility] Discharge Planning Comments: CM WILL FAX IV MED ORDER TO [facility] SOON WE RECEIVE IT. HOME IV ANTIBIOTICS ARE PENDING CULTURES. ANTICIPATE POTENTIALLY TOMORROW. PATIENT IS CURRENT WITH [facility]. CM CONTINUE TO FOLLOW AND ASSIST NEEDED. Needle Polisher: Edna Jordan DCP- Discharge Planning Updated by [email or web address]: Eden Schwarz on 07/21/20 1:[address] I HAVE FAXED CLINCIALS TO [facility], PATIENT IS CURRENT WITH THEM AT THIS TIME DCP- Discharge Planning Updated by [email or web address]: Eden Schwarz on 07/21/20 1:[address] [facility] WOUND VAC APPROVED, WAITING ON MICRO FOR IV HOME ABX DCP- Discharge Planning Updated by [email or web address]: Eden Schwarz on 07/20/20 7:[address] SENT THE ORDER TO [facility] WAITING ON SENSIVITIES FOR HOME IV ABX ORDER TO SET UP External Providers External Provider: [facility] Next Contact Date: Service Request Date: Service Type: Resolution: Reviewer: Comments: Last DP export: 07/29/20 12:10 p Patient Name: DARYL ANAYA Page [phone] at 1206 All edits/amendments must be made on the electronic document DICTATION DATE: 08/13/20 1205 REPAIRER SCREEN CRUSHER: TAM 08/13/20 1205 RPT#: [id number] DC DATE: STATUS: ADM IN [facility] [address] [place] [address] END OF REPORT
--- NOTE | 2020-08-13 12:20 | MORECARE ---
CASE MANAGEMENT DISCHARGE SUMMARY PATIENT: DARYL ANAYA UNIT: [id number] ADM DATE: 07/13/20 AGE: 69 : 51 SEX: F ROOM/BED: D.2215 AUTHOR: RICODOC PHYSICIAN: REFERRING PHYSICIAN: TAMEKA ALEMAN MD DATE OF SERVICE: 08/13/20 Discharge Plan Patient Name: DARYL ANAYA Facility: [facility]:[place] : 1950 Planned Disposition: Anticipated Discharge Date: Discharge Date: Expected LOS: Initial Reviewer: [email or web address] Initial Review Date: 07/14/2020 Generated: 08/13/20 1:19 pm Comments DCP- Discharge Planning Updated by [email or web address]: Edna Jordan on 07/29/20 12:[address] Patient Name: DARYL ANAYA Admission Status: Elective Accout number: [id number] Admission Date: 07-13-2020 : 1950 Admission Diagnosis:UNSPECIFIED OPEN WOUND, LEFT ANKLE, INITIAL ENCOUNTER Attending: YOKO Current LOS: 16 Anticipated DC Date: Planned Disposition: Primary Insurance: [employer]ASYSMCR Discharge Planning Comments: IV MED ORDER FAXED TO [facility]. I HAVE LET THEM KNOW PATIENT IS NOT READY FOR DISCHARGE YET. I WILL PLACE IV ORDER SHEET ON PATIENT CHART. Car Sales Representative: Edna Jordan DCP- Discharge Planning Updated by [email or web address]: Edna Jordan on 07/23/20 12:[address] Patient Name: DARYL ANAYA Admission Status: Elective Accout number: [id number] Admission Date: 07-13-2020 : 1950 Admission Diagnosis:UNSPECIFIED OPEN WOUND, LEFT ANKLE, INITIAL ENCOUNTER Attending: YOKO Current LOS: 10 Anticipated DC Date: Planned Disposition: Primary Insurance: [employer] Discharge Planning Comments: ATTEMPTED TO CONTACT PATIENT FOR FURTHER DC PLANNING. NO ANSWER IN HER ROOM. I SPOKE WITH THE NURSE AND SHE SAID SHE IS SLEEPING, SHE WAS AWAKE MOST OF THE NIGHT. I WILL TRY CALLING HER BACK LATER TODAY. Car Sales Representative: Edna Jordan DCP- Discharge Planning Updated by [email or web address]: Edna Jordan on 07/23/20 9:[address] Patient Name: DARYL ANAYA Admission Status: Elective Accout number: [id number] Admission Date: 07-13-2020 : 1950 Admission Diagnosis:UNSPECIFIED OPEN WOUND, LEFT ANKLE, INITIAL ENCOUNTER Attending: YOKO Current LOS: 10 Anticipated DC Date: Planned Disposition: Primary Insurance: [facility] Discharge Planning Comments: CM WILL FAX IV MED ORDER TO [facility] SOON WE RECEIVE IT. HOME IV ANTIBIOTICS ARE PENDING CULTURES. ANTICIPATE POTENTIALLY TOMORROW. PATIENT IS CURRENT WITH [facility] [employer] [employer]. CM CONTINUE TO FOLLOW AND ASSIST NEEDED. Car Sales Representative: Edna Jordan DCP- Discharge Planning Updated by [email or web address]: Eden Schwarz on 07/21/20 1:[address] I HAVE FAXED CLINCIALS TO [facility], PATIENT IS CURRENT WITH THEM AT THIS TIME DCP- Discharge Planning Updated by [email or web address]: Eden Schwarz on 07/21/20 1:[address] [facility] WOUND VAC APPROVED, WAITING ON MICRO FOR IV HOME ABX DCP- Discharge Planning Updated by [email or web address]: Eden Schwarz on 07/20/20 7:[address] SENT THE ORDER TO [facility] WAITING ON SENSIVITIES FOR HOME IV ABX ORDER TO SET UP External Providers External Provider: [facility] Next Contact Date: Service Request Date: Service Type: Resolution: Reviewer: Comments: Last DP export: 08/13/20 11:05 a Patient Name: DARYL ANAYA Page [phone] at 1220 All edits/amendments must be made on the electronic document DICTATION DATE: 08/13/20 1220 EDGING MACHINE CATCHER: TAM 08/13/20 1220 RPT#: [id number] DC DATE: STATUS: ADM IN [place] [id number] [place] [address] END OF REPORT
--- NOTE | 2020-08-13 12:28 | MORECARE ---
CASE MANAGEMENT DISCHARGE SUMMARY PATIENT: DARYL ANAYA UNIT: [id number] ADM DATE: 07/13/20 AGE: 69 : 51 SEX: F ROOM/BED: D.2215 AUTHOR: RICO,DOC PHYSICIAN: REFERRING PHYSICIAN: TAMEKA ALEMAN MD DATE OF SERVICE: 08/13/20 Discharge Plan Patient Name: DARYL ANAYA Facility: [facility]:[place] : 1950 Planned Disposition: Anticipated Discharge Date: Discharge Date: Expected LOS: Initial Reviewer: [email or web address] Initial Review Date: 07/14/2020 Generated: 08/13/20 1:27 pm Comments DCP- Discharge Planning Updated by [email or web address]: Eden Schwarz on 08/13/20 11:[address] I HAVE SET THE PATIENT UP WITH IV ABX WITH [facility], [facility] WILL START CARE TOMORROW AND O2 HAS BEEN DELIVERED TO THE PATIENTS ROOM AND WILL SET UP THE NEBULIZER AND HOME O2 WHEN SHE IS DISCHARGED HOME. I WILL MAKE SURE SHE HAS ALL THE OTHER DME THAT SHE MAY NEED PRIOR TO DC PATIENT'S SON WILL BE COMING TO THE HOSPITAL TO LEARNING THE IV ABX CM TO FOLLOW AND ASSIST NEEDED DCP- Discharge Planning Updated by [email or web address]: Edna Jordan on 07/29/20 12:[address] Patient Name: DARYL ANAYA Admission Status: Elective Accout number: [id number] Admission Date: 07-13-2020 : 1950 Admission Diagnosis:UNSPECIFIED OPEN WOUND, LEFT ANKLE, INITIAL ENCOUNTER Attending: YOKO Current LOS: 16 Anticipated DC Date: Planned Disposition: Primary Insurance: [employer] Discharge Planning Comments: IV MED ORDER FAXED TO [facility]. I HAVE LET THEM KNOW PATIENT IS NOT READY FOR DISCHARGE YET. I WILL PLACE IV ORDER SHEET ON PATIENT CHART. Subway Train Driver: Edna Jordan DCP- Discharge Planning Updated by [email or web address]: Edna Jordan on 07/23/20 12:[address] Patient Name: DARYL ANAYA Admission Status: Elective Accout number: [id number] Admission Date: 07-13-2020 : 07-11-1951 Admission Diagnosis:UNSPECIFIED OPEN WOUND, LEFT ANKLE, INITIAL ENCOUNTER Attending: YOKO Current LOS: 10 Anticipated DC Date: Planned Disposition: [facility] Discharge Planning Comments: ATTEMPTED TO CONTACT PATIENT FOR FURTHER DC PLANNING. NO ANSWER IN HER ROOM. I SPOKE WITH THE NURSE AND SHE SAID SHE IS SLEEPING, SHE WAS AWAKE MOST OF THE NIGHT. I WILL TRY CALLING HER BACK LATER TODAY. Subway Train Driver: Edna Jordan DCP- Discharge Planning Updated by [id number]: Edna Nikki on 07/23/20 9:[address] Patient Name: DARYL ANAYA Admission Status: Elective Accout number: [id number] Admission Date: 07-13-2020 : 1950 Admission Diagnosis:UNSPECIFIED OPEN WOUND, LEFT ANKLE, INITIAL ENCOUNTER Attending: YOKO Current LOS: 10 Anticipated DC Date: Planned Disposition: [facility] Discharge Planning Comments: CM WILL FAX IV MED ORDER TO [facility] SOON WE RECEIVE IT. HOME IV ANTIBIOTICS ARE PENDING CULTURES. ANTICIPATE POTENTIALLY TOMORROW. PATIENT IS CURRENT WITH [facility]. CM CONTINUE TO FOLLOW AND ASSIST NEEDED. Subway Train Driver: Edna Jordan DCP- Discharge Planning Updated by [email or web address]: Eden Schwarz on 07/21/20 1:[address] I HAVE FAXED CLINCIALS TO [employer] [facility], PATIENT IS CURRENT WITH THEM AT THIS TIME DCP- Discharge Planning Updated by [id number]: Eden Schwarz on 07/21/20 1:[address] [facility] WOUND VAC APPROVED, WAITING ON MICRO FOR IV HOME ABX DCP- Discharge Planning Updated by [id number]: Eden Schwarz on 07/20/20 7:[address] SENT THE ORDER TO [facility] WAITING ON SENSIVITIES FOR HOME IV ABX ORDER TO SET UP Last DP export: 08/13/20 11:20 a Patient Name: DARYL ANAYA Page [phone] at 1228 All edits/amendments must be made on the electronic document DICTATION DATE: 08/13/201226 LEVEL VIAL INSPECTOR AND TESTER: TAM 08/13/201226 RPT#: [id number] DC DATE: STATUS: ADM IN [place] [address] [place] [address] END OF REPORT
[2020-08-13 12:52] VITALS: BP 110/84
--- NOTE | 2020-08-13 13:30 | NUR ---
Nutrition follow-up: Visited with pt during meal rounds. Pt eating breakfast; reports appetite is much better. 100% of last 3 meals +BM Labs reviewed WT: 229# PO intake good at this time RDN follow-up: 08/18/20
--- NOTE | 2020-08-13 14:19 | MORECARE ---
CASE MANAGEMENT DISCHARGE SUMMARY PATIENT: DARYL ANAYA UNIT: [id number] ADM DATE: 07/13/20 AGE: 69 : 51 SEX: F ROOM/BED: D.2215 AUTHOR: RICO,DOC PHYSICIAN: REFERRING PHYSICIAN: TAMEKA ALEMAN MD DATE OF SERVICE: 08/13/20 Discharge Plan Patient Name: DARYL ANAYA Facility: [facility]:[place] : 1950 Planned Disposition: Anticipated Discharge Date: Discharge Date: Expected LOS: Initial Reviewer: [email or web address] Initial Review Date: 07/14/2020 Generated: 08/13/20 3:19 pm Comments DCP- Discharge Planning Updated by [email or web address]: Eden Schwarz on 08/13/20 1:[address] Patient will be discharging today with a shower chair, BSC, W/C, walker and wound vac. Amado Mak will be here between 3:30-4:00 to do education with her and her son. She will get her 1600 dose here and then can be discharged home. [employer] will be there tomorrow for start of care IMM served and explained. Her portable O2 is at bedside. CM to follow and assist as needed DCP- Discharge Planning Updated by [email or web address]: Eden Schwarz on 08/13/20 11:[address] I HAVE SET THE PATIENT UP WITH IV ABX WITH [facility], [facility] WILL START CARE TOMORROW AND O2 HAS BEEN DELIVERED TO THE PATIENTS ROOM AND WILL SET UP THE NEBULIZER AND HOME O2 WHEN SHE IS DISCHARGED HOME. I WILL MAKE SURE SHE HAS ALL THE OTHER DME THAT SHE MAY NEED PRIOR TO DC PATIENT'S SON WILL BE COMING TO THE HOSPITAL TO LEARNING THE IV ABX CM TO FOLLOW AND ASSIST NEEDED DCP- Discharge Planning Updated by [email or web address]: Edna Jordan on 07/29/20 12:[address] Patient Name: DARYL ANAYA Admission Status: Elective Accout number: [id number] Admission Date: 07-13-2020 : 1950 Admission Diagnosis:UNSPECIFIED OPEN WOUND, LEFT ANKLE, INITIAL ENCOUNTER Attending: YOKO Current LOS: 16 Anticipated DC Date: Planned Disposition: Primary Insurance: [employer] Discharge Planning Comments: IV MED ORDER FAXED TO [facility]. I HAVE LET THEM KNOW PATIENT IS NOT READY FOR DISCHARGE YET. I WILL PLACE IV ORDER SHEET ON PATIENT CHART. Shipper/Receiver: Edna Jordan DCP- Discharge Planning Updated by [id number]: Edna Nikki on 07/23/20 12:[address] Patient Name: DARYL ANAYA Admission Status: Elective Accout number: [id number] Admission Date: 07-13-2020 : 1950 Admission Diagnosis:UNSPECIFIED OPEN WOUND, LEFT ANKLE, INITIAL ENCOUNTER Attending: YOKO Current LOS: 10 Anticipated DC Date: Planned Disposition: [facility] Discharge Planning Comments: ATTEMPTED TO CONTACT PATIENT FOR FURTHER DC PLANNING. NO ANSWER IN HER ROOM. I SPOKE WITH THE NURSE AND SHE SAID SHE IS SLEEPING, SHE WAS AWAKE MOST OF THE NIGHT. I WILL TRY CALLING HER BACK LATER TODAY. Shipper/Receiver: Edna Jordan DCP- Discharge Planning Updated by [email or web address]: Edna Nikki on 07/23/20 9:[address] Patient Name: DARYL ANAYA Admission Status: Elective Accout number: [id number] Admission Date: 07-13-2020 : 1950 Admission Diagnosis:UNSPECIFIED OPEN WOUND, LEFT ANKLE, INITIAL ENCOUNTER Attending: YOKO Current LOS: 10 Anticipated DC Date: Planned Disposition: [facility] Discharge Planning Comments: CM WILL FAX IV MED ORDER TO [facility] SOON WE RECEIVE IT. HOME IV ANTIBIOTICS ARE PENDING CULTURES. ANTICIPATE POTENTIALLY TOMORROW. PATIENT IS CURRENT WITH [facility]. CM CONTINUE TO FOLLOW AND ASSIST NEEDED. Shipper/Receiver: Edna Jordan DCP- Discharge Planning Updated by [email or web address]: Eden Schwarz on 07/21/20 1:[address] I HAVE FAXED CLINCIALS TO [employer], PATIENT IS CURRENT WITH THEM AT THIS TIME DCP- Discharge Planning Updated by [email or web address]: Eden Schwarz on 07/21/20 1:[address] [facility] WOUND VAC APPROVED, WAITING ON MICRO FOR IV HOME ABX DCP- Discharge Planning Updated by [email or web address]: Eden Schwarz on 07/20/20 7:[address] SENT THE ORDER TO [facility] WAITING ON SENSIVITIES FOR HOME IV ABX ORDER TO SET UP Coverage Notice Reviewer: [email or web address] Rodger Schwarz Notice Issued Date-Time: 08/13/2020 13:40 Notice Type: IM Discharge Notice Notice Delivered To: Patient Relationship to Patient: [employer] Name: Delivery Method: HAND - Hand Delivered Afsaneh Days: Prior Verbal Notification: Recipient Understood Notice: Yes Recipient Signature: Yes Med Rec Note Co-signed by Attending: Coverage Notice Comment: imm served and explained Reviewer: [id number] Rodger Schwarz Notice Issued Date-Time: 08/13/2020 13:40 Notice Type: Patient Choice Letter Notice Delivered To: Patient Relationship to Patient: [employer] Name: Delivery Method: HAND - Hand Delivered Afsaneh Days: Prior Verbal Notification: Recipient Understood Notice: Yes Recipient Signature: Yes Med Rec Note Co-signed by Attending: Coverage Notice Comment: [facility] Last DP export: 08/13/20 11:27 a Patient Name: DARYL ANAYA Page [id number] at 1419 All edits/amendments must be made on the electronic document DICTATION DATE: 08/13/20 1419 JUVENILE COUNSELOR: TAM 08/13/20 1419 RPT#: [id number] DC DATE: STATUS: ADM IN [facility] [address] [place] [address] END OF REPORT
[2020-08-13] MEDS ORDERED: VANCOMYCIN 1 GM/1 G1 IV (14:41)
--- NOTE | 2020-08-13 18:45 | NUR ---
PATIENT ABX FINISHED. LINE FLUSHED AND CLAMPED. ORANGE CAP PLACED. WAITING FOR PATIENT TO GET DRESSED TO DC. RECIEVED DC INSTRUCTIONS. VERBALIZED UNDERSTANDING. NO QUESTIONS AT THIS TIME. RECIEVED ABX AND INSTRUCTIONS, WOUNDVAC, AND PORTIBLE O2 ALREADY. CALL LIGHT WITHIN REACH.
--- NOTE | 2020-08-13 19:00 | NUR ---
PATIENT ESCORTED OUT OF HOSPITAL VIA WC WITH PERSONAL BELONGINGS BY SHOW CARD LETTERER TO PRIVATE VEHICLE AT THIS TIME.
--- NOTE | 2020-08-14 07:30 | MORECARE ---
CASE MANAGEMENT DISCHARGE SUMMARY PATIENT: DARYL ANAYA UNIT: [id number] ADM DATE: 07/13/20 AGE: 69 : 51 SEX: F ROOM/BED: D.2215 AUTHOR: RICO,DOC PHYSICIAN: REFERRING PHYSICIAN: TAMEKA ALEMAN MD DATE OF SERVICE: 08/14/20 Discharge Plan Patient Name: DARYL ANAYA Facility: [facility]:[place] : 1950 Planned Disposition: Home with Home Health Anticipated Discharge Date: Discharge Date: 08/13/2020 Expected LOS: 0 Initial Reviewer: [email or web address] Initial Review Date: 07/14/2020 Generated: 08/14/20 8:29 am Comments DCP- Discharge Planning Updated by [id number]: Eden Schwarz on 08/13/20 1:[address] Patient will be discharging today with a shower chair, BSC, W/C, walker and wound vac. Amado Mak will be here between 3:30-4:00 to do education with her and her son. She will get her 1600 dose here and then can be discharged home. [facility] will be there tomorrow for start of care IMM served and explained. Her portable O2 is at bedside. CM to follow and assist as needed DCP- Discharge Planning Updated by [id number]: Eden Schwarz on 08/13/20 11:[address] I HAVE SET THE PATIENT UP WITH IV ABX WITH AMADO MAK, [facility] WILL START CARE TOMORROW AND O2 HAS BEEN DELIVERED TO THE PATIENTS ROOM AND WILL SET UP THE NEBULIZER AND HOME O2 WHEN SHE IS DISCHARGED HOME. I WILL MAKE SURE SHE HAS ALL THE OTHER DME THAT SHE MAY NEED PRIOR TO DC PATIENT'S SON WILL BE COMING TO THE HOSPITAL TO LEARNING THE IV ABX CM TO FOLLOW AND ASSIST NEEDED DCP- Discharge Planning Updated by [id number]: Edna Jordan on 07/29/20 12:[address] Patient Name: DARYL ANAYA Admission Status: Elective Accout number: [id number] Admission Date: 07-13-2020 : 1950 Admission Diagnosis:UNSPECIFIED OPEN WOUND, LEFT ANKLE, INITIAL ENCOUNTER Attending: YOKO Current LOS: 16 Anticipated DC Date: Planned Disposition: [facility] Discharge Planning Comments: IV MED ORDER FAXED TO [facility]. I HAVE LET THEM KNOW PATIENT IS NOT READY FOR DISCHARGE YET. I WILL PLACE IV ORDER SHEET ON PATIENT CHART. Electrician [employer]: Edna Jordan DCP- Discharge Planning Updated by [id number]: Edna Nikki on 07/23/20 12:[address] Patient Name: DARYL ANAYA Admission Status: Elective Accout number: [id number] Admission Date: 07-13-2020 : 1950 Admission Diagnosis:UNSPECIFIED OPEN WOUND, LEFT ANKLE, INITIAL ENCOUNTER Attending: YOKO Current LOS: 10 Anticipated DC Date: Planned Disposition: Primary Insurance: [employer] Discharge Planning Comments: ATTEMPTED TO CONTACT PATIENT FOR FURTHER DC PLANNING. NO ANSWER IN HER ROOM. I SPOKE WITH THE NURSE AND SHE SAID SHE IS SLEEPING, SHE WAS AWAKE MOST OF THE NIGHT. I WILL TRY CALLING HER BACK LATER TODAY. Electrician [employer]: Edna Jordan DCP- Discharge Planning Updated by [email or web address]: Edna Nikki on 07/23/20 9:[address] Patient Name: DARYL ANAYA Admission Status: Elective Accout number: [id number] Admission Date: 07-13-2020 : 1950 Admission Diagnosis:UNSPECIFIED OPEN WOUND, LEFT ANKLE, INITIAL ENCOUNTER Attending: YOKO Current LOS: 10 Anticipated DC Date: Planned Disposition: Primary [facility] Discharge Planning Comments: CM WILL FAX IV MED ORDER TO [facility] SOON WE RECEIVE IT. HOME IV ANTIBIOTICS ARE PENDING CULTURES. ANTICIPATE POTENTIALLY TOMORROW. PATIENT IS CURRENT WITH [facility]. CM CONTINUE TO FOLLOW AND ASSIST NEEDED. Electric[employer]: Edna Jordan DCP- Discharge Planning Updated by [id number]: Eden Schwarz on 07/21/20 1:[address] I HAVE FAXED CLINCIALS TO [facility], PATIENT IS CURRENT WITH THEM AT THIS TIME DCP- Discharge Planning Updated by [email or web address]: Eden Schwarz on 07/21/20 1:[address] [facility] WOUND VAC APPROVED, WAITING ON MICRO FOR IV HOME ABX DCP- Discharge Planning Updated by [email or web address]: Eden Schwarz on 07/20/20 7:[address] SENT THE ORDER TO [facility] WAITING ON SENSIVITIES FOR HOME IV ABX ORDER TO SET UP Coverage Notice Reviewer: [id number] Rodger Schwarz Notice Issued Date-Time: 08/13/2020 13:40 Notice Type: IM Discharge Notice Notice Delivered To: Patient Relationship to Patient: Broom Worker Name: Delivery Method: HAND - Hand Delivered Afsaneh Days: Prior Verbal Notification: Recipient Understood Notice: Yes Recipient Signature: Yes Med Rec Note Co-signed by Attending: Coverage Notice Comment: imm served and explained Reviewer: [id number] Schwarz Notice Issued Date-Time: 08/13/2020 13:40 Notice Type: Patient Choice Letter Notice Delivered To: Patient Relationship to Patient: Broom Worker Name: Delivery Method: HAND - Hand Delivered Afsaneh Days: Prior Verbal Notification: Recipient Understood Notice: Yes Recipient Signature: Yes Med Rec Note Co-signed by Attending: Coverage Notice Comment: rachelle red deltona eyad Last DP export: 08/13/20 1:19 p Patient Name: DARYL ANAYA Page [phone] at 0730 All edits/amendments must be made on the electronic document DICTATION DATE: 08/14/20728 ELECTRICIAN JOURNEYMAN WIREMAN: TAM 08/14/20728 RPT#: [id number] DC DATE:08/13/20 STATUS: DIS IN [facility] [address] [place] [address] END OF REPORT
== END 2020-08-13 19:41 | disposition home health service (06) | DRG 856 ==
LOC: D.OPS 09:42 → D.MS 09:42 → D.OPS 11:30 → D.MS 18:26 → D.ICU 18:27 → D.OPS 18:27 → D.M2 07-28 20:30 → D.ICU 07-29 15:11 → D.MS 08-08 12:55
PROVIDERS: Anesthesiology; Emergency Medicine; Family Medicine; Internal Medicine Pulmonary Disease; ADMIT Orthopaedic Surgery; ATTEND Orthopaedic Surgery
PROC: 2W1TX6Z Compression of Left Foot using Pressure Dressing (ICD-10-PCS; 2020-07-13)
PROC: 0JBR0ZZ Excision of Left Foot Subcutaneous Tissue and Fascia, Open Approach (ICD-10-PCS; principal; 2020-07-13 11:30)
PROC: 0HRNXK3 Replacement of Left Foot Skin with Nonautologous Tissue Substitute, Full Thickness, External Approach (ICD-10-PCS; 2020-07-19)
PROC: 0QBH0ZZ Excision of Left Tibia, Open Approach (ICD-10-PCS; 2020-07-19)
PROC: 05HY33Z Insertion of Infusion Device into Upper Vein, Percutaneous Approach (ICD-10-PCS; 2020-07-20)
PROC: 5A1945Z Respiratory Ventilation, 24-96 Consecutive Hours (ICD-10-PCS; 2020-07-29)
PROC: 0BH17EZ Insertion of Endotracheal Airway into Trachea, Via Natural or Artificial Opening (ICD-10-PCS; 2020-07-29)
PROC: 3E04317 Introduction of Other Thrombolytic into Central Vein, Percutaneous Approach (ICD-10-PCS; 2020-07-29)
PROC: 0JXR0ZZ Transfer Left Foot Subcutaneous Tissue and Fascia, Open Approach (ICD-10-PCS; 2020-08-07)
PROC: 0QBH0ZZ Excision of Left Tibia, Open Approach (ICD-10-PCS; 2020-08-07)
DX: T81.43XA Infection following a procedure, organ and space surgical site, initial encounter (principal); J96.01 Acute respiratory failure with hypoxia; J18.9 Pneumonia, unspecified organism; M00.9 Pyogenic arthritis, unspecified; N17.9 Acute kidney failure, unspecified; E11.69 Type 2 diabetes mellitus with other specified complication; S91.002A Unspecified open wound, left ankle, initial encounter; E11.21 Type 2 diabetes mellitus with diabetic nephropathy; E78.5 Hyperlipidemia, unspecified; F41.8 Other specified anxiety disorders; K21.9 Gastro-esophageal reflux disease without esophagitis; I10 Essential (primary) hypertension; M19.90 Unspecified osteoarthritis, unspecified site; E66.9 Obesity, unspecified; Z68.33 Body mass index [BMI] 33.0-33.9, adult

== ENCOUNTER → 2020-08-17 22:51 | Outpatient (CLI) | payer OTHER ==
[2020-07-14 14:26] VITALS: BMI 33.1
[~2020-08-17 22:51] MED LIST changes: +VANCOMYCIN 1 GM/1 G1 IV
[2020-08-17 23:25] LABS: BASOPHILS 0.2 % (0-2); HEMATOCRIT 32.9 % (36.0-48.0); HEMOGLOBIN 10.6 g/dL (12-16); IMMATURE GRANULOCYTES 0.4 % (0-5); LYMPHOCYTES 18.5 % (15-50); MCH 28.2 pg (26.0-34.0); MCHC 32.2 g/dL (31.0-37.0); MCV 87.5 fL (80.0-100.0); MEAN PLATELET VOLUME 9.8 fL (7.4-10.4); MONOCYTES 4.9 % (2-11); NEUTROPHIL ABS# 8.29 10x3/uL (1.56-6.13); PLATELET COUNT 324 10x3/uL (130-400); RBC 3.76 10x6/uL (4.00-5.40); RDW 15.3 % (11.5-14.5); RETIC 0.57 % (0.45-2.28); WBC 11.4 10x3/uL (4.8-10.8)
[2020-08-17 23:44] LABS: C-REACTIVE PROTEIN 3.4 mg/dL (0.0-0.9); CREATININE - SERUM 1.3 mg/dL (0.6-1.3); VANCOMYCIN - TROUGH 14.2 ug/mL (10.0-20.0)
== END | disposition home or self-care (01) ==
LOC: D.LABREF 22:51
PROVIDERS: ATTEND Orthopaedic Surgery
DX: Z47.89 Encounter for other orthopedic aftercare (principal)

== ENCOUNTER → 2020-08-24 18:29 | Outpatient (CLI) | payer OTHER ==
[2020-07-14 14:26] VITALS: BMI 33.1
[~2020-08-24 18:29] MED LIST changes: +ACETAMINOPHEN325 MG; +FLUTICASONE PRO16 GM NASAL; +GLIPIZIDE10 MG; -GLUCOTROL 5 MG T5 MG PO; +VANCOMYCIN 1 GM/1 G1 IVPB
[2020-08-24 18:57] LABS: BASOPHILS 0.2 % (0-2); EOSINOPHILS 2.9 % (0-7); HEMATOCRIT 31.1 % (36.0-48.0); HEMOGLOBIN 9.9 g/dL (12-16); IMMATURE GRANULOCYTES 0.8 % (0-5); LYMPHOCYTE ABS# 2.18 10x3/uL (1.18-3.74); LYMPHOCYTES 21.1 % (15-50); MCH 27.6 pg (26.0-34.0); MCHC 31.8 g/dL (31.0-37.0); MCV 86.6 fL (80.0-100.0); MEAN PLATELET VOLUME 9.7 fL (7.4-10.4); MONOCYTES 6.2 % (2-11); NEUTROPHIL ABS# 7.13 10x3/uL (1.56-6.13); NEUTROPHILS 68.8 % (40-80); PLATELET COUNT 278 10x3/uL (130-400); RBC 3.59 10x6/uL (4.00-5.40); RDW 15.2 % (11.5-14.5); WBC 10.4 10x3/uL (4.8-10.8)
[2020-08-24 19:42] LABS: C-REACTIVE PROTEIN 2.6 mg/dL (0.0-0.9); CREATININE - SERUM 1.4 mg/dL (0.6-1.3); VANCOMYCIN - TROUGH 11.7 ug/mL (10.0-20.0)
[2020-08-24 20:27] LABS: ERYTHROCYTE SEDIMENTATION RATE 57 mm/hr (0-30)
== END | disposition home or self-care (01) ==
LOC: D.LABREF 18:29
PROVIDERS: ATTEND Orthopaedic Surgery
DX: Z47.89 Encounter for other orthopedic aftercare (principal)

== ENCOUNTER 2020-08-27 06:25 | Day surgery (SDC) | payer OTHER ==
[2020-08-26 12:19] LABS: BASOPHILS 0.2 % (0-2); EOSINOPHILS 2.9 % (0-7); HEMOGLOBIN 9.7 g/dL (12-16); IMMATURE GRANULOCYTES 0.7 % (0-5); LYMPHOCYTE ABS# 2.19 10x3/uL (1.18-3.74); LYMPHOCYTES 19.3 % (15-50); MCH 26.9 pg (26.0-34.0); MCHC 31.3 g/dL (31.0-37.0); MCV 86.1 fL (80.0-100.0); MEAN PLATELET VOLUME 9.3 fL (7.4-10.4); MONOCYTES 5.5 % (2-11); NEUTROPHIL ABS# 8.12 10x3/uL (1.56-6.13); NEUTROPHILS 71.4 % (40-80); PLATELET COUNT 275 10x3/uL (130-400); RDW 15.1 % (11.5-14.5); WBC 11.4 10x3/uL (4.8-10.8)
[2020-08-26 12:28] LABS: ANION GAP 10.8 mmol/L (8-16); CALCIUM 8.5 mg/dL (8.5-10.1); CARBON DIOXIDE 30.3 mmol/L (21.0-32.0); CREATININE - SERUM 1.2 mg/dL (0.6-1.3); POTASSIUM - SERUM 4.1 mmol/L (3.5-5.1)
[2020-08-26 12:45] LABS: APTT 27.8 SECONDS (22.8-39.4); INR 1.1 (0.85-1.17); PROTIME 13.1 SECONDS (11.6-15.0)
[~2020-08-27] VITALS: Ht 165.1 cm; Wt 90.7 kg
[2020-08-27 06:50] VITALS: BP 113/71; Ht 165.1 cm; Wt 90.7 kg
--- NOTE | 2020-08-27 10:55 | NUR ---
OPA IN AIRWAY ON ADMIT
--- NOTE | 2020-08-27 10:56 | NUR ---
NPA REMOVED FROM LT NARE @1849
--- NOTE | 2020-08-27 12:40 | NUR ---
1225 IV REMOVED AND PRESSURE HELD. INSTRUCTIONS GIVEN. LEFT LEG ELEVATED ON PILLOW. PIC LINE FLUSHED WITH NS AND HEPARIN. FLUSHES WELL. 1230 DR ALEMAN AT BEDSIDE TO TALK TO PT. INFORMED HIM OF SWOLLEN RIGHT FOOT AND PALE TOES ON LEFT. WOUND VAC ON AND IN USE AT 125MM PRESSURE. NO DRAINGE NOTED
--- NOTE | 2020-08-29 11:53 | OP ---
PATIENT NAME: DARYL LOVETT MEDICAL RECORD: [id number] :[birth year] LOCATION:[facility] ADMISSION DATE: SURGEON: TAMEKA ALEMAN MD DATE OF OPERATION: 08/27/2020 PREOPERATIVE DIAGNOSES: 1. Open wound, left ankle, status post incision and drainage with wound VAC placement. 2. Left ankle infection. 3. History of open reduction internal fixation, left ankle fracture. POSTOPERATIVE DIAGNOSES: 1. Open wound, left ankle, status post incision and drainage with wound VAC placement. 2. Left ankle infection. 3. History of open reduction internal fixation, left ankle fracture. PROCEDURE PERFORMED: 1. Incision and debridement of left ankle (skin, subcutaneous tissue, bone). 2. Application of Kerecis graft. 3. Application of wound VAC, left ankle (less than 50 cm-squared). INDICATIONS FOR THE PROCEDURE: Ms. Lovett is a 69-year-old female who fell and fractured her ankle approximately 4 months ago and developed a wound over the anterior medial aspect of the ankle. We have been performing serial debridements with wound VAC placement in an attempt to salvage her leg and she returns today for repeat I&D with placement of a Kerecis graft. Risks, benefits and alternatives of surgery were discussed with the patient and her family and consent was obtained. DESCRIPTION OF THE PROCEDURE: The patient was met in the holding area where her identity and confirmation of procedure was performed. The left lower extremity was marked. She was taken to the operating room where she was placed supine on the operating table and anesthesia was administered. Tourniquet was applied to the left thigh and left leg was prepped and draped in a sterile fashion. The patient received preoperative antibiotics and timeout was performed before initiating the case. On initiation of the case, the wound was explored. The anterior aspect of the tibia was exposed in the central aspect of the wound. The tendon remained visible along the lateral edge. There was also some purulent appearing fluid at the inferior edge, it appeared to be originating from the ankle joint. Cultures were obtained from this area. Wound was irrigated thoroughly with saline. Any fibrinous tissue from around the edges was debrided. The bone was still very soft centrally with no obvious granulation tissue. Then, the wound itself measured 5.5 x 4 cm with a 3 x 2.5 cm area of exposed bone centrally. An incision was made along the lateral edge of the wound and we attempted to advance a flap of tissue in order to cover the tendon. This was reapproximated with sutures. After thorough debridement, a Kerecis graft was laid in the wound bed and stacked to fit. The graft was meshed before application. The graft was then sewn into place with a running Monocryl suture. The area was then covered with Adaptic and a wound VAC was applied to the wound measuring 5 x 4 cm. Wound VAC showed good compression and a sterile dressing was then placed. She was turned back over to anesthesia. She was awakened and taken to the recovery room in stable condition. POSTOPERATIVE PLAN: The patient is going to return home with her family today. OPERATIVE REPORT [id number] DARYL LOVETT She needs to continue the wound VAC. We will plan to see her back in clinic on Monday for examination of the wound. We will also follow her culture results and discuss further management, pending those as well. COMPLICATIONS: None. ESTIMATED BLOOD LOSS: 10 mL. ANESTHESIA: Peripheral block with sedation. TRANSINT:[id number] Voice Confirmation ID: [id number] DOCUMENT ID: [id number] TAMEKA ALEMAN MD at 1153 CC: [id number] DICTATION DATE: 08/27/20 1053 OVER HAULER HELPER: 08/27/20 1124 [facility] 08/27/[address] [address]
== END 2020-08-27 12:40 | disposition home or self-care (01) ==
LOC: D.OPS 06:25
PROVIDERS: Anesthesiology; ATTEND Orthopaedic Surgery
DX: S91.002D Unspecified open wound, left ankle, subsequent encounter (principal); Z98.890 Other specified postprocedural states; M25.572 Pain in left ankle and joints of left foot; X58.XXXD Exposure to other specified factors, subsequent encounter; E11.65 Type 2 diabetes mellitus with hyperglycemia

== ENCOUNTER 2020-09-24 07:01 | Day surgery (SDC) | payer OTHER ==
[~2020-09-24] VITALS: Ht 165.1 cm; Wt 90.9 kg
--- NOTE | ~2020-09-24 | OP ---
PATIENT NAME: DARYL LOVETT MEDICAL RECORD: [id number] :52 LOCATION:[facility] ADMISSION DATE: SURGEON: TAMEKA ALEMAN MD DATE OF OPERATION: 09/24/2020 PREOPERATIVE DIAGNOSES: 1. Open wound left ankle, status post incision and debridement with wound VAC placement. 2. Left ankle infection. 3. History of open reduction and internal fixation of left ankle fracture. POSTOPERATIVE DIAGNOSES: 1. Open wound left ankle, status post incision and debridement with wound VAC placement. 2. Left ankle infection. 3. History of open reduction and internal fixation of left ankle fracture. PROCEDURE PERFORMED: 1. Incision and debridement of left ankle (skin, subcutaneous tissue, bone). 2. Approximation of inferior tissues for wound coverage. 3. Application of Kerecis graft. 4. Application of wound VAC, left ankle (less than 50 cm-squared). INDICATIONS FOR THE PROCEDURE: Ms. Lovett is a 69-year-old female who fell and fractured her ankle approximately 6 months ago and developed a wound over the anterior medial aspect of the ankle. We have been performing serial debridements of this wound, attempting to salvage her leg and the wound is improving. She returns to the operating room today for repeat I&D of the ankle and we are also going to perform some procedures to try to reapproximate the inferior tissues in order to provide more coverage of the exposed bone. The risks, benefits and alternatives of surgery were discussed with the patient and consent was obtained. DESCRIPTION OF PROCEDURE: The patient was met in the holding area where her identity and confirmation of procedure was performed. The left lower extremity was marked. She was taken to the operating room where she was placed supine on the operating table and anesthesia was administered. Tourniquet was applied to the left thigh and left leg was prepped and draped in a sterile fashion. The patient received preoperative antibiotics and timeout was performed before initiating the case. On initiation of the case, the wound was explored and noted to have good granulation tissue around the edges and exposed bone centrally. There was a flap of tissue along the inferior medial border of the wound that was mobile with ankle dorsiflexion and plantar flexion. The wound appeared clean. The wound was irrigated thoroughly with saline. We then attempted to reapproximate those inferior tissues in order to stabilize the inferior edge of the wound and provide more coverage of the bone distally. An Iconix 1.4 suture anchor was placed medially just near the border of the granulation tissue. The anchor provided good bite and was then placed in the undersurface of the inferior tissues. The 2 arms of the anchor were passed through the tissues couple of times. We were then able to tie these and elevate the inferior edge. We repeated this along the lateral border of the wound as well going through the undersurface of the tissues inferiorly from the lateral edge medially and provided good reapproximation of those tissues with good wound coverage. There was still exposed area of bone centrally. A small drill bit was used and 4 drill holes were made along the superior lateral and central OPERATIVE REPORT [id number] DARYL LOVETT portion of the bone. We were able to get some bleeding from the undersurface with this drilling especially along the superior lateral edge, which will hopefully stimulate healing as well. Again, the wound was irrigated thoroughly with saline. Final wound size measured 5 x 2.5 cm. A Kerecis graft was then sized and cut to shape. It was then fenestrated with a size #11 scalpel blade and sewed into place with a 4-0 Monocryl suture. Adaptic was then used to cover the graft and a wound VAC was applied. Wound VAC was noted to have good compression in the operating room. This was then covered with a sterile dressing and the patient was placed into a boot. She was turned back over to anesthesia where she was awakened, extubated, and taken to recovery room in stable condition. POSTOPERATIVE PLAN: The patient is going to return home with her family today. She needs to remain in the boot at all times and is nonweightbearing on the left lower extremity. We will plan to see her back in clinic on Monday for VAC removal and wound check. COMPLICATIONS: None. ESTIMATED BLOOD LOSS: 5 mL. ANESTHESIA: General. TRANSINT:[id number] Voice Confirmation ID: [id number] DOCUMENT ID: [id number] TAMEKA ALEMAN MD CC: [id number] DICTATION DATE: 09/24/20 1203 CLASP MACHINE OPERATOR: 09/24/20 1317 [facility] [address] [place] [address]
[~2020-09-24 07:01] MED LIST changes: +CIPRO500 MG PO; +SINGULAIR10 MG PO
[2020-09-24 07:18] LABS: BASOPHILS 0.3 % (0-2); EOSINOPHILS 4.9 % (0-7); HEMATOCRIT 30.7 % (36.0-48.0); HEMOGLOBIN 9.7 g/dL (12-16); IMMATURE GRANULOCYTES 0.7 % (0-5); LYMPHOCYTE ABS# 2.56 10x3/uL (1.18-3.74); LYMPHOCYTES 22.9 % (15-50); MCH 26.6 pg (26.0-34.0); MCHC 31.6 g/dL (31.0-37.0); MCV 84.3 fL (80.0-100.0); MEAN PLATELET VOLUME 9.1 fL (7.4-10.4); NEUTROPHIL ABS# 7.27 10x3/uL (1.56-6.13); NEUTROPHILS 65.2 % (40-80); RBC 3.64 10x6/uL (4.00-5.40); RDW 14.5 % (11.5-14.5); WBC 11.2 10x3/uL (4.8-10.8)
[2020-09-24 07:19] LABS: PLATELET COUNT 415 10x3/uL (130-400)
[2020-09-24 07:37] LABS: ANION GAP 8.8 mmol/L (8-16); CALCIUM 9.3 mg/dL (8.5-10.1); CARBON DIOXIDE 32.6 mmol/L (21.0-32.0); CREATININE - SERUM 1.3 mg/dL (0.6-1.3); POTASSIUM - SERUM 4.4 mmol/L (3.5-5.1)
[2020-09-24 07:39] LABS: APTT 27.2 SECONDS (22.8-39.4); INR 1.09 (0.85-1.17); PROTIME 13.1 SECONDS (11.6-15.0)
[2020-09-24 07:53] VITALS: BP 102/77; Ht 165.1 cm; Wt 90.9 kg
--- NOTE | 2020-09-24 13:00 | NUR ---
DC TEACHING COMPLETED. VERBALIZED UNDERSTANDING. PIV DC'D WITH CATHETER INTACT. [facility] AND THIS NURSE ASSISTED PT TO GET DRESSED. O2 90 ON RA, PT STATES SHE WEARS O2 NEEDED AT HOME. INSTRUCTED TO USE HER O2 WHEN SHE ARRIVES HOME. VERBALIZED UNDERSTANDING. 1336 DC'D VIA PT'S PERSONAL WC BY DIAMOND AT 1336 TO POV WITH SON DRIVING. ALL BELONGINGS AND DC PACKET WITH PATIENT.
== END 2020-09-24 13:36 | disposition home or self-care (01) ==
LOC: D.OPS 07:01
PROVIDERS: Anesthesiology; ATTEND Orthopaedic Surgery
DX: M25.572 Pain in left ankle and joints of left foot (principal); E11.9 Type 2 diabetes mellitus without complications; S91.002D Unspecified open wound, left ankle, subsequent encounter; X58.XXXD Exposure to other specified factors, subsequent encounter; Z96.662 Presence of left artificial ankle joint

== ENCOUNTER → 2020-10-20 13:16 | Outpatient (CLI) | payer OTHER ==
[2020-09-24 07:53] VITALS: BMI 33.3
== END | disposition home or self-care (01) ==
LOC: D.LAB 13:16
PROVIDERS: ATTEND Internal Medicine Pulmonary Disease
DX: Z11.52 Encounter for screening for COVID-19 (principal)

== ENCOUNTER → 2020-10-22 14:18 | Outpatient (CLI) | payer OTHER ==
[2020-09-24 07:53] VITALS: BMI 33.3
== END | disposition home or self-care (01) ==
LOC: D.RT 14:00
PROVIDERS: ATTEND Internal Medicine Pulmonary Disease
DX: J45.909 Unspecified asthma, uncomplicated (principal); Z11.52 Encounter for screening for COVID-19